=== PATIENT | male | born 1955 | race Caucasian/White ===

== ENCOUNTER 2018-09-29 14:05 | Inpatient (IN) ==
--- NOTE | 2018-09-29 09:28 | Discharge Summary ---
<Martha Joseph - Last Filed: 09/29/18 09:26> Orders not resulted at time of discharge: Pending orders 09/29/18 01:00 XR post op reverse apex RT [XR] Routine Hemoglobin and Hematocrit [HEME] Routine Date of Encounter: 09/29/18 - Hospital Course Hospital course: Mr. Go is a 63 year old male - Time Spent with Patient Total time spent providing and/or coordinating discharge services: - Discharge Medications Prescriptions: New Docusate Sodium [Colace] 100 mg PO BID 5 Days #10 capsule OxyCODONE Immed Rel [Roxicodone 5 MG] 5 mg PO Q6HR PRN 5 Days #20 tablet PRN Reason: Severe Pain Continued Losartan Potassium [Cozaar] 100 mg PO DAILY Celecoxib [Celebrex] 200 mg PO Q12H Montelukast [Singulair] 10 mg PO HS Diltiazem CD (24hr) [Cardizem CD] 120 mg PO DAILY Aspirin [Lo-Dose Aspirin EC] 81 mg PO DAILY Home Medications: Celecoxib [Celebrex] 200 mg PO Q12H 10/19/17 [History] Losartan Potassium [Cozaar] 100 mg PO DAILY 10/19/17 [History] Montelukast [Singulair] 10 mg PO HS 10/19/17 [History] Aspirin [Lo-Dose Aspirin EC] 81 mg PO DAILY 09/29/18 [History] Diltiazem CD (24hr) [Cardizem CD] 120 mg PO DAILY 09/29/18 [History] Docusate Sodium [Colace] 100 mg PO BID 5 Days #10 capsule 09/29/18 [Rx] OxyCODONE Immed Rel [Roxicodone 5 MG] 5 mg PO Q6HR PRN 5 Days #20 tablet 09/29/18 [Rx] Allergies/Adverse Reactions: Allergy/AdvReac Type Severity Reaction Status Date / Time No Known Allergies Allergy Verified 09/29/18 14:17 Primary care physician: Michael Dunham MD - Patient Status Disposition: Home, Self-Care Condition: Good - Discharge Instructions Follow Up With: Michael Dunham MD [Primary Care Provider] - Additional Instructions: Discharge Instructions: Total Shoulder Please call [facility] ([phone]), your Primary Care Physician, or report to the Emergency Room if you have any of the following symptoms: Nausea, vomiting, fever greater that 101.5, swelling, chest pain, shortness of breath, increased pain/redness/drainage/odor for your incision site, numbness/tingling, or any other concerning symptoms. ACTIVITY: Always keep your arm in the sling. Do not raise your arm away from your body. Do not use your arm to help with getting in or out of bed. No weight bearing permitted. Only perform those exercises given to you by your therapist. Incentive Spirometer 10 times an hour. MEDICATIONS: Upon discharge resume your home medications. Take all the medications as prescribed. Take a stool softener if taking narcotic pain medications. Stool softeners are only effective if you drink enough fluids. Drink 6-8 glass of water or fluids a day, unless this is not allowed for another health problem. Despite using stool softeners, if you haven't had a bowel movement in 3 days, please switch to a gentle laxative. Gentle laxatives are sold over the counter. You should have a bowel movement within 24 hours, if not call the office. You will be discharged from the hospital with a prescription for pain medication. You are encouraged to decrease the use of narcotic pain medication as tolerated. Should you require a refill, please call the office. [facility] prescribes narcotic pain medication for only 4-6 weeks after surgery. If you require pain medication beyond this time period, you may be referred to your Primary Care Physician or to the Pain Clinic for further evaluation. Plan ahead for refills on pain medication as many narcotics either need to be picked up at the office or mailed. It is best to call 48-72 hours in advance of needing a prescription refill so you don't run out of medication. To help control the post-operative pain, you may take NSAIDs (Aleve,Advil, Motrin, Ibuprofen, Naprosyn) or Tylenol as prescribed on the bottle in addition to the pain medication. WOUND CARE: Leave the dressing on for 7-10 days. You may change the dressing if it becomes saturated greater than 50%. Do not get the dressing wet at anytime. Wash your hands with antibacterial soap, rinse and dry prior to any wound care. If you have juancho the visiting nurse or rehab facility can remove the stapes 10-14 days after surgery and place steri-strips across the wound. Leave the steri-strips in place until they fall off on their own. You may let water from the shower run on top of the steri-strips. If you do not have a visiting nurse or rehab facility, you will need to return to the office at 10-14 days for the juancho to be removed. If you have itching or redness around the dressing call the office. FOLLOW-UP: Please follow up with your surgeon in the orthopedic clinic, as scheduled <Martha Calderón - Last Filed: 09/30/18 21:55> Orders not resulted at time of discharge: Pending orders 09/29/18 15:02 US anesthesia pain block [US] Routine 09/29/18 16:49 Surgical Pathology [PTH] Routine 10/01/18 04:00 Basic Metabolic Panel DAILY Hemoglobin and Hematocrit [HEME] DAILY Date of Encounter: 09/30/18 Time of Encounter: 14:30 - Discharge Diagnosis (1) Status post total replacement of right shoulder Priority: Primary Status: Acute (2) Rotator cuff arthropathy of right shoulder Priority: Primary Status: Chronic (3) HTN (hypertension) Priority: Secondary Status: Chronic Qualifiers: Hypertension type: essential hypertension Qualified Code(s): I10 - Essential (primary) hypertension (4) Obesity (BMI 30.0-34.9) Priority: Secondary Status: Chronic - Hospital Course Hospital course: Mr. Go is a 63 year old male status post right TSR reverse 09/29/18 with medical history of HTN, obesity. He participated in therapy and had an uneventful hospital course. Stable for discharge and will follow up in [facility] office within 1 week. PCR - POD#1 s/p right TSR reverse 09/29 Patient seen at bedside, without complaints. A&O x 3 Afebrile, vital signs stable. Labs reviewed. H/H - 14.5/43.4 stable, asymptomatic BUN/Cr was 26 preop and stable at 27 today. Pain control: adequate Participating in PT. All questions and concerns addressed. Educated on use of incentive spirometer. Encouraged ambulation and proper hydration. Patient educated on post-operative restrictions and post-operative care. Assessment and plan: Continue with postoperative care Discharge plan: Home with outpatient therapy, discharge today. - Time Spent with Patient Total time spent providing and/or coordinating discharge services: Date of admission: 09/29/18 18:14 Primary care physician: Michael Dunham MD Consults: 09/29/18 18:15 Consult to Occupational Therapy [CONS] Routine Comment: post shoulder surgery Reason for Consult: post shoulder surgery Does patient have active BEDREST order?: No Is patient medically & hemodynamically stable?: Yes Consult to Physical Therapy [CONS] Routine Comment: post shoulder surgery Reason for Consult: post shoulder surgery Does patient have active BEDREST order?: No Is patient medically & hemodynamically stable?: Yes Consult to Heart Surgeon [CONS] Routine Reason for SW Consult: shoulder surgery RT Post Op Consult [CONS] Routine Discharging clinician: Cam Mota Anticipated date of discharge: 09/30/18 Labs on day of discharge: Labs from last 24 hours 09/30/18 09/30/18 09/29/18 08:30 08:30 17:24 Hgb 14.5 14.3 Hct 43.4 42.6 Sodium 138 Potassium 4.3 Chloride 104 Carbon Dioxide 24 BUN 22 Creatinine 0.82 Est GFR ( Amer) > 60 Est GFR (Non-Af Amer) > 60 BUN/Creatinine Ratio 27 H Glucose 143 H Calculated Osmolality 292 Calcium 9.4 - Impressions ITS Impressions Shoulder X-Ray 09/29/18 01:00 IMPRESSION: Unremarkable right shoulder status post reverse arthroplasty. D/ / Fazal Wheeler MD / Fazal Wheeler MD Interpreting Provider: Fazal Wheeler MD - Patient Status Functional capacity at discharge: independent ambulation Overall status at discharge: patient is back to baseline - Diet and Activity Activity: as per physical therapy Diet: advance to your usual diet
--- NOTE | 2018-09-29 10:47 | Anesthesia Evaluation PreOp ---
Date of Encounter: 09/29/18 Time of Encounter: 14:26 - Past History Planned Operation: Right Total Shoulder Cardiac History: HTN Pulmonary History: Asthma, Snore MARKETING INTERN History: Denies Any Significant HX Other Medical History: Denies Any Significant HX Anesthesia History: No Prior Anesthetic Complications, Past Anesthesia Alcohol Use: occasionally Drug use: none Medications and Allergies Celecoxib [Celebrex] 200 mg PO Q12H 10/19/17 [History] Losartan Potassium [Cozaar] 100 mg PO DAILY 10/19/17 [History] Montelukast [Singulair] 10 mg PO HS 10/19/17 [History] Aspirin [Lo-Dose Aspirin EC] 81 mg PO DAILY 09/29/18 [History] Diltiazem CD (24hr) [Cardizem CD] 120 mg PO DAILY 09/29/18 [History] Docusate Sodium [Colace] 100 mg PO BID 5 Days #10 capsule 09/29/18 [Rx] OxyCODONE Immed Rel [Roxicodone 5 MG] 5 mg PO Q6HR PRN 5 Days #20 tablet 09/29/18 [Rx] 3 Allergy/AdvReac Type Severity Reaction Status Date / Time No Known Allergies Allergy Verified 09/29/18 14:17 - Meds/Allergy Pre-op Review Medications Reviewed: Yes Allergies Reviewed: Yes Beta Blockers on Current Med List: No Anesthesia Results - Labs Laboratory Tests 09/10/18 09/10/18 12:01 12:01 WBC 6.1 Hgb 14.9 Hct 44.7 Plt Count 233 Sodium 143 Potassium 4.4 BUN 26 H Creatinine 0.91 - Imaging EKG: report reviewed (08/29/2017 sinus rhythm, possible LAFB) Additional studies: 10/31/2017 Echo Impressions: LVEF 65%. Asymmetric basal septal hypertrophy. No LVOT obstruction. Mild left ventricular diastolic dysfunction. Normal right ventricular structure and function. Mild tricuspid regurgitation. No pulmonary hypertension. 09/27/2017 Stress Findings: Normal sinus rhythm at rest. No baseline arrhythmias were noted. Stress ECG is negative for ischemia. Occasional PVCs and four 4-beat episodes of NSVT during exercise. The patient demonstrated a normal blood pressure response. The exercise capacity was good. No chest pain during stress procedure. Anesthesia Exam O2 Sat Height 1.78 m Weight 96.615 kg O2 Sat by Pulse Oximetry 96 O2 Sat by Pulse Oximetry 96 Vital Signs Temp Pulse Resp BP Pulse Ox 98.1 F 94 18 146/87 96 09/29/18 14:40 09/29/18 14:40 09/29/18 14:40 09/29/18 14:40 09/29/18 14:40 Height: 5'10" Weight: 213 lbs NPO (# of Hours): 8 Pain Scale: 0 Pain Scale Used: Numeric (1 - 10) - HEENT Pupil (Motor): EOMI Mallampati: II Teeth: Normal Oral Opening: Greater than 3 - MARKETING INTERN LOC: Oriented MARKETING INTERN Motor: Normal RUE, Normal LUE, Normal RLE, Normal LLE, Normal Face MARKETING INTERN Sensory: Normal: RUE, LUE, RLE, LLE, Face - Cardiac Rhythm: Regular Murmur: None - Pulmonary Breath Sounds: bilateral Clear Respiratory Effort: Symmetrical Anesthesia Assess/Plan ASA Score: 2 Level of consciousness: Cooperative, Oriented, Tranquil Anesthetic Plan: General, Regional Nerve Block Regional Nerve Block Plan: Supraclavicular Monitoring Plan: Standard Monitors Recovery Plan: PACU
[2018-09-29] MEDS ORDERED: Albuterol 2.5 MG/3 ML NEBULIZER IH ONE (14:18)
[2018-09-29] MEDS ORDERED: CeFAZolin Syr 2,000MG/20 ML 2,000 MG/20 ML SYRINGE IVPB ONE (14:18)
[2018-09-29] MEDS ORDERED: Ringers Solution, Lactated 1,000 ML IVC SCH ×2 (14:30→18:15)
--- NOTE | 2018-09-29 14:30 | History & Physical Report ---
Date of Encounter: 09/29/18 Time of Encounter: 14:30 24 Hour HP Update - Instructions Instructions: If the History and Physical is less than 30 days old and was completed prior to A.M. admission and or procedure and has NOT been updated on calendar day of procedure please complete this update prior to performing procedure. - Update Patient reports changes in Medical Condition: No Changes in examination, assessment, or condition: No Changes in Medication: No Preop tests/diagnostics Reviewed: Yes Surgery Remains Indicated: Yes Consent for Planned Operative Procedure(s) Verified: Yes - Pre-Operative Checklist Preoperative Checklist Indicated: No Prophylactic Antibiotic Ordered: Yes Is VTE Prophylaxis Indicated?: Yes
[2018-09-29] MEDS ORDERED: *HR* HYDROmorphone (PF) 1 MG/ML SYRINGE IVP PRN (15:02)
[2018-09-29] MEDS ORDERED: Ondansetron 4 MG/2 ML VIAL IVP ONE (15:02)
[2018-09-29] MEDS ORDERED: *HR* Promethazine 25 MG/ML VIAL IVP PRN (15:02)
[2018-09-29] MEDS ORDERED: *HR* OxyCODONE Immed Rel 5 MG TABLET PO PRN ×2 (15:02→18:15)
[2018-09-29] MEDS ORDERED: ROPIVACAINE HCL/PF 0.5% 30 ML VIAL ONE (15:13)
[2018-09-29] MEDS ORDERED: ROPIVACAINE/PF/NS SYRINGE INTRAART ONE (15:14)
[2018-09-29] MEDS ORDERED: Ethanol\\Acetic Acid\\Na Ace\\Ben 1,000 ML IRRIG.SOLN IR ONE (15:15)
[2018-09-29] MEDS ORDERED: *HR* FentaNYL (PF) 100 MCG/2 ML VIAL ONE (15:20)
[2018-09-29] MEDS ORDERED: Lidocaine -MPF 2% 2 ML VIAL ONE ×2 (15:20→15:22)
[2018-09-29] MEDS ORDERED: *HR* Propofol 200 MG/20 ML VIAL IVP ONE ×2 (15:20→16:02)
[2018-09-29] MEDS ORDERED: *HR* Midazolam HCl 2 MG/2 ML VIAL ONE (15:21)
--- NOTE | 2018-09-29 15:44 | Anesthesia Procedures ---
Date of Encounter: 09/29/18 Time of Encounter: 15:35 Procedures: Anesthesia - Nerve Block Procedure Date: 09/29/18 Time: 15:35 Allergies/Adv Reactions: Allergies No Known Allergies Allergy (Verified 09/29/18 14:17) Pre-op Diagnosis: right shoulder arthritis Surgical Procedure: right shoulder arthroplasty Checklist: Correct Patient Identifier, Correct procedure, History checked Correct side: Right Blood Thinner: No Monitor Applied: BP, Pulse Oximetry Supplemental Oxygen via Nasal Cannula (L/min): 2 Sedation: Versed (mg): 2 Sedation: Fentanyl (mcg): 100 Indication: Post Op Analgesia Pre-op Neuro Deficits: No Block Type: Supraclavicular, Other (SCP, ICB) Catheter placed: No Sterile Technique: Yes Ultrasound used: Yes Anatomy identified: Yes Visual spread of Local: Yes Blood on Needle Aspiration: No Smooth Injection of Local: Yes Pain with Injection of Local: No Prep: Chlorhexadine Needle: 22 x 50 mm Stimuplex Local: Ropivacaine (25ml 0.5% ropivacaine with decadron and 15ml 0.25% ropivacaine) Volume (cc): 40 Number of Attempts: 1 Complications: None/effective block Vitals: see nurses vitals
[2018-09-29] MEDS ORDERED: Ondansetron 4 MG/2 ML VIAL ONE (16:11)
--- NOTE | 2018-09-29 17:20 | Orthopedic Operative Note ---
Date of procedure: 09/29/18 Pre-op diagnosis: Shoulder cuff tear arthropathy Post-op diagnosis: same Procedure: Procedure: Total Shoulder Replacment Reverse, right Estimated blood loss: 50 cc Hardware: Metal and polyethylene replacement: Arthrex 28, +2 , 30 mm post glenoid baseplate, 4 locking 5.5 screw, 42+4 glenosphere, 13 apex humeral stem, poly insert 6 Exam Under anesthesia: Full motion no instability Procedural Notes: Shoulder arthritis rotator cuff tear Operative procedure: The patient was brought to the operating room and placed on the operating room table. After general anesthesia was administered the operative shoulder was examined. Findings were noted. The patient was placed in the modified beachchair position. All pressure points were padded appropriately. And the head was stabilized in the neutral position. The operative extremity was prepped and draped in the sterile surgical fashion. The patient received IV antibiotics prior to skin incision. A standard deltopectoral approach was made to the operative shoulder. Incision was made to the skin and subcutaneous tissue,hemo stasis was obtained with Bovie cautery. Using careful blunt dissection the cephalic vein was identified and mobilized medially. The deltopectoral interval was developed and the clavipectoral fascia was incised. The subscap was released off the lesser tuberosity and tagged with #2 FiberWire suture subscap was irreparable. The humerus was dislocated patient noted to have irreparable tear supraspinatus tendon, and the humeral cut was made along the anatomic neck. Anterior and posterior Bankart retractors were placed to expose the glenoid. Patient noted to have grade 4 arthritic changes humeral head glenoid socket. The glenoid guide was seated and the centering hole was made. It was reamed with the appropriate reamer. The 28, +2, 30 mm post was seated and secured with 4 locking 5.5 screw. The baseplate was irrigated and dried and the 42+4 Glenosphere was seated and secured with the Hernandez taper. The Hernandez taper was tested and found to be secu re, glenosphere fixation was secondarily secured with the central screw. The humerus was redislocated and prepared with the diaphyseal reamers, followed by a broaching process up to the appropriate size 13 in the patient's anatomic version. The metaphyseal reamer was then utilized. Trial reduction found the shoulder to be relocatable. Trial components were removed and 13 stem was impacted in place in the patient's anatomic version. Trial reduction found the shoulder to be relocatable and stable with the appropriate 6 Linda Trial component was removed and the real implant was seated and secured the shoulder was reduced. The shoulder had excellent motion and excellent stability and no evidence of dislocation. The deep tissue was irrigated with pulse irrigation. The deltopectoral i nterval was closed with a running #1 PDS suture, subcutaneous tissue was irrigated and closed with 0 PDS suture, the skin was closed with Dermabond. The patient was placed in a sterile dressing, abduction brace and extubated. The patient was then transferred to the recovery room in stable condition. Anesthesia: GETA Surgeon: Cam Mota Was there an early childhood teacher assistant present: No Estimated blood loss (cc): 50 Condition: stable Disposition: PACU
[2018-09-29] MEDS ORDERED: *HR* Enoxaparin 30 MG/0.3 ML SYRINGE SQ SCH (18:00)
[2018-09-29 18:07] LABS: Hematocrit 42.6 % (37.5-50.1); Hemoglobin 14.3 g/dL (12.9-16.9)
[2018-09-29] MEDS ORDERED: Ondansetron 4 MG/2 ML VIAL IVP PRN (18:15)
[2018-09-29] MEDS ORDERED: Temazepam 15 MG CAPSULE PO PRN (18:15)
[2018-09-29] MEDS ORDERED: Sennosides 8.6 MG TABLET PO PRN (18:15)
[2018-09-29] MEDS ORDERED: traMADol 50 MG TABLET PO PRN (18:15)
[2018-09-29] MEDS ORDERED: MOM Conc 10 ML UD.LIQ PO PRN (18:15)
[2018-09-29] MEDS ORDERED: *HR* OxyCODONE/APAP 5/325 TABLET PO PRN (18:15)
[2018-09-29] MEDS: Celecoxib 200 MG CAPSULE PO SCH (19:41)
--- NOTE | 2018-09-29 19:59 | Anesthesia Evaluation Post Op ---
Date of Encounter: 09/29/18 Time of Encounter: 17:36 - Discharge PostOp Status: Transfer Patient to floor (Patient's vital signs have been reviewed. Patient is stable postoperatively and has adequately recovered from anesthesia. Patient is determined to have stable airway patency and respiratory function including respiratory rate and oxygen saturation. Patient has a stable heart rate, blood pressure and adequate hydration. Patients mental status is acceptable. Patients temperature is appropriate. Pain and nausea are adequately controlled.)
[2018-09-30] MEDS ORDERED: *HR* Enoxaparin 30 MG/0.3 ML SYRINGE SQ SCH (06:00)
[2018-09-30] MEDS: Celecoxib 200 MG CAPSULE PO SCH (06:12)
--- NOTE | 2018-09-30 06:39 | Orthopedics Progress Note ---
Date of Encounter: 09/30/18 Time of Encounter: 06:39 Subjective Interval history: Patient was seen this morning doing well without complaints. Afebrile vital signs stable. Operative extremity: Neurovascularly intact Dressing clean dry and intact Calves nontender Assessment and plan: Continue with postoperative care Stable for discharge Objective Vital signs: Vital Signs Temp Pulse Resp BP Pulse Ox 09/30/18 02:44 98.1 F 103 18 148/84 95 09/29/18 23:28 98.1 F 102 18 108/65 94 09/29/18 21:50 98.6 F 96 16 131/81 93 09/29/18 20:51 98 F 103 16 139/91 94 09/29/18 19:46 98.1 F 97 18 137/88 94 09/29/18 19:19 98.2 F 95 16 138/86 96 09/29/18 18:25 98.1 F 90 14 143/86 94 09/29/18 18:06 97.2 F L 88 20 135/85 88 09/29/18 17:56 91 20 147/86 96 09/29/18 17:46 89 20 144/84 96 09/29/18 17:36 97.3 F L 90 20 139/89 98 09/29/18 17:26 92 20 151/87 97 09/29/18 17:16 94 22 150/85 97 09/29/18 17:06 97.2 F L 99 22 138/82 96 09/29/18 15:51 99 16 132/84 95 09/29/18 15:39 96 16 124/77 94 09/29/18 15:32 95 18 132/85 92 09/29/18 14:40 98.1 F 94 18 146/87 96 Intake and Output 09/29/18 09/29/18 09/30/18 15:59 23:59 07:59 Intake Total 350 / 350 0 / 0 Output Total 50 / 50 Balance 300 / 300 0 / 0 Intake: IV Fluids 100 / 100 Ancef 2,000 MG In 0.9 % Sodium 100 / 100 Chloride 100 ML @ 200 mls/hr IVPB Q8H [facility] Rx#:[id number] Oral 250 / 250 0 / 0 Output: Urine 0 / 0 Estimated Blood Loss 50 / 50 Other: # Voids 1 1 Weight 96.615 kg 95.7 kg Patient Weight 09/30/18 23:59 Weight 95.7 kg - Labs CBC & BMP: 09/29/18 17:24 Consult Discharge Plan - Plan Referrals: Michael Dunham MD [Primary Care Provider] -
[2018-09-30 08:45] LABS: Hematocrit 43.4 % (37.5-50.1); Hemoglobin 14.5 g/dL (12.9-16.9)
[2018-09-30] MEDS ORDERED: Aspirin Enteric Coated 81 MG Tablet PO SCH (09:00)
[2018-09-30] MEDS ORDERED: Diltiazem CD (24hr) 120 MG CAPSULE PO SCH (09:00)
[2018-09-30 09:06] LABS: BUN/Creatinine Ratio 27 (6-26); Blood Urea Nitrogen 22 mg/dL (8-23); Calcium 9.4 mg/dL (8.6-10.3); Carbon Dioxide 24 mEq/L (23-29); Chloride 104 mEq/L (98-107); Glucose 143 mg/dL (70-105); Osmolality,Calculated 292 (280-300); Potassium 4.3 mEq/L (3.5-5.1); Sodium 138 mEq/L (136-145); eGFR For African Americans > 60 (> 60); eGFR For Non-African Americans > 60 (> 60)
[2018-09-30 11:49] VITALS: BP 110/67
== END 2018-09-30 16:04 | disposition home or self-care (01) | DRG 483 ==
LOC: SAMDAY 14:05 → 3NENU 18:14
PROVIDERS: ADMIT Orthopaedic Surgery; ATTEND Orthopaedic Surgery

== ENCOUNTER 2018-10-20 17:32 | Inpatient (IN) ==
[2018-10-20] MEDS ORDERED: *HR* HYDROmorphone (PF) 1 MG/ML SYRINGE IM ONE (18:24)
[2018-10-20] MEDS ORDERED: Ondansetron ODT 4 MG TAB.RAPDIS SL ONE (18:24)
--- NOTE | 2018-10-20 18:55 | Emergency Department Note ---
Disposition Clinical Impression: Closed fracture of humerus, shaft Qualifiers: Encounter type: initial encounter Fracture morphology: other fracture Laterality: right Qualified Code(s): S42.391A - Other fracture of shaft of right humerus, initial encounter for closed fracture Disposition: Admitted As Inpatient Condition: Fair Prescriptions: OxyCODONE/APAP 5/325 [Percocet 5/325 MG] 1 each PO Q4HR PRN 2 Days #8 tablet PRN Reason: Pain Referrals: Michael Dunham MD [Primary Care Provider] - Cam Mota MD [Partnered Physician] - Forms: ED Satisfaction Letter Time of Disposition: 20:40 Upper Extremity HPI - General Chief Complaint: ED Extremity Injury, Upper Stated Complaint: R shoulder pain s/p fall Time Seen by Provider: 10/20/18 18:24 Source: patient, family Mode of arrival: private vehicle Limitations: no limitations Nursing Notes Reviewed: Yes Vital Signs Reviewed: Yes - History of Present Illness HPI Narrative: Patient with hx of right total shoulder replacement 3 weeks ago and RUE DVT's 2 weeks ago - on Eliquis - presents to ED for eval of right shoulder pain after [place] a park. He states that he tripped on uneven pavement and landed on his right anterior shoulder. He was wearing his sling. He denies head, neck or back injury or pain. Onset (ago): hour(s) Other Injuries: none Handedness: right Place: outdoors Pain Severity: severe Pain Scale: 10 Improves with: nothing Worsens with: movement of extremity, Palpation Context: fall (tripped at the park, landed on right anterior shoulder while wearing sling) Associated symptoms: Reports: paresthesias ("a little numbness/tingling in the fingers"). Denies: weakness, neck pain, suspects foreign body, heard/felt popping sensation, deformity, swelling, laceration Treatments prior to arrival: other (none) - Related Data Home Medications Medication Instructions Recorded Confirmed Celecoxib [Celebrex] 200 mg PO Q12H 10/19/17 10/20/18 Losartan Potassium [Cozaar] 100 mg PO DAILY 10/19/17 10/20/18 Montelukast [Singulair] 10 mg PO HS PRN 10/19/17 10/20/18 Diltiazem CD (24hr) [Cardizem CD] 120 mg PO DAILY 09/29/18 10/20/18 Apixaban [Eliquis] 5 mg PO BID 10/15/18 10/20/18 Previous Rx's Medication Instructions Recorded OxyCODONE/APAP 5/325 [Percocet 1 each PO Q4HR PRN 2 Days #8 tablet 10/20/18 5/325 MG] Allergies Allergy/AdvReac Type Severity Reaction Status Date / Time No Known Allergies Allergy Verified 10/15/18 11:13 All systems ED: reviewed and negative except as stated. Review of Systems: As Per HPI Constitutional: Denies: fever, chills, weakness Eyes: Denies: vision change Cardiovascular: Denies: chest pain, palpitations, dyspnea on exertion, syncope Respiratory: Denies: dyspnea Gastrointestinal: Denies: abdominal pain, nausea, vomiting Musculoskeletal: Reports: as per HPI, joint swelling, arthralgia. Denies: back pain, neck pain Integumentary: Denies: abrasion Neurological: Reports: as per HPI, numbness, paresthesias. Denies: weakness Hematological/Lymphatic: Denies: easy bleeding, easy bruising Past Medical History - Past Medical History Attestation: Yes The following information was validated with the patient. Source: patient Medical history: Reports: arthritis, asthma, DVT, hypertension Surgical history: Reports: orthopedic, other (Right shoulder replacement 3 weeks ago) Psychiatric history: Reports: no psych history - Social History Smoking Status: Never smoker Exposure to secondhand smoke: No Smokeless Tobacco Status: No Alcohol use: Reports: none Drug use: Reports: none Physical Exam - General Limitations: no limitations General appearance: alert, in no apparent distress - Head Head exam: atraumatic, normocephalic, normal inspection - Eye Eye exam: Present: normal appearance. Absent: scleral icterus, conjunctival injection, periorbital swelling - ENT ENT exam: mucous membranes moist - Neck Neck exam: Present: normal inspection, full ROM, trachea midline. Absent: tenderness - Expanded Neck Exam Neck exam focused ED: Absent: midline tenderness, paraspinal tenderness, tenderness (other), anterior neck swelling - Chest Chest inspection: Present: normal inspection. Absent: tenderness - Respiratory Respiratory exam: Present: normal lung sounds bilaterally. Absent: respiratory distress - Cardiovascular Cardiovascular exam: Present: regular rate, normal rhythm - Extremities Exam Extremities exam: Present: tenderness, normal capillary refill - Expanded Upper Extremity Exam Shoulder exam: Present: tenderness, swelling, tenderness over AC joint. Absent: full ROM, abrasion, laceration, ecchymosis, erythema Arm exam: Present: tenderness. Absent: swelling, abrasion, ecchymosis, deformi ty, crepitus, erythema Elbow exam: Present: normal inspection. Absent: tenderness Forearm/Wrist exam: Present: normal inspection. Absent: tenderness Hand exam: Present: normal inspection, full ROM. Absent: tenderness, swelling Neuromotor exam: Normal: wrist extension, thumb opposition, thumb IP flexion, thumb adduction, fingers 2-5 abduction Neurosensory exam: Normal: radial nerve, ulnar nerve, median nerve, axillary nerve Hand tendon exam: Normal: flexor digitorum profundus (location), flexor digitorum superficialis (location), extensor tendon (location) Vascular exam: Normal: capillary refill, radial pulse, ulnar pulse - Back Exam Back exam: Present: tenderness, muscle spasm, paraspinal tenderness. Absent: CVA tenderness (R), CVA tenderness (L), vertebral tenderness Back 1 view image: 1 - significant spasm, tenderness - Neurological Exam Neurological exam: Present: alert, oriented X3, CN II-XII intact, normal gait. Absent: motor sensory deficit - Psychiatric Psychiatric exam: Present: normal affect, normal mood - Skin Skin exam: Present: warm, dry, intact, normal color Course Course Narrative: Patient fell on his new right shoulder. Pulses and cap refill normal. Sensation normal and symmetric bilaterally. No head or neck injury and no spine tenderness. HE appears to be in a grat deal of pain. Will medicate and then order xrays. Vitals normal, except mild hypertension. Pain much better after 1mg dilaudid. Vitals stable. Xrays ordered. Xrays show proximal humerus fracture around the prosthetic stem. Dr. Mota has been paged. Case discussed with Dr. Mota. He recommends having the patient wear his sling and he will see the patient tomorrow at 8 AM. 21:15 Patient's pain returned and he is unable to care for self at home. He is also concerned about anticoagulation in setting of possible surgery for this new injury. Will page Dr. Mota and hospitalist. Dr. Mota will see the patient in the hospital tomorrow AM. He recommends Lovenox as patient will not have surgery tomorrow. Vital Signs Temperature 97.9 F 10/20/18 17:41 Pulse Rate 95 10/20/18 17:41 Respiratory Rate 20 10/20/18 17:41 Blood Pressure 141/84 10/20/18 17:41 O2 Sat by Pulse Oximetry 94 10/20/18 17:41 Temperature 97.9 F 10/20/18 17:41 Pulse Rate 102 10/20/18 22:14 Respiratory Rate 16 10/20/18 22:14 Blood Pressure 136/81 10/20/18 22:14 O2 Sat by Pulse Oximetry 95 10/20/18 22:14 Oxygen Delivery Oxygen Delivery Room Air Extremity Injury, Upper - Medical Records Medical records reviewed: Yes I reviewed the patient's medical records. - Lab Data Result diagrams: 10/20/18 21:44 Lab Results 10/20/18 Range/Units 21:44 WBC 10.1 (4.3-11.1) K/mcL RBC 4.24 (4.19-5.50) M/mcL Hgb 13.7 (12.9-16.9) g/dL Hct 41.1 (37.5-50.1) % MCV 96.9 (83.0-100.0) fL MCH 32.3 (28.0-33.3) pg MCHC 33.3 (31.6-35.5) g/dL RDW 11.6 (11.5-14.5) % Plt Count 247 (140-400) K/mcL MPV 10.4 (9.4-12.4) fL Immature Gran % 0.4 (0-4) % Seg Neutrophils % 83.8 % Lymphocytes % 6.6 % Monocytes % 8.8 % Eosinophils % 0.2 % Basophils % 0.2 % Neutrophils # 8.5 (1.6-8.9) K/mcL Lymphocytes # 0.7 (0.6-4.6) K/mcL Monocytes # 0.9 (0.0-1.3) K/mcL Eosinophils # 0.0 (0.0-0.6) K/mcL Basophils # 0.0 (0.0-0.2) K/mcL - Radiology Data Radiology results reviewed: Yes I reviewed the patient's radiology results. Humerus X-Ray 10/20/18 18:57 IMPRESSION: Right shoulder: Status post reverse right shoulder arthroplasty with periprosthetic fracture adjacent to the humeral prosthetic stem. Right humerus: Remainder of the right humerus is unremarkable. D/ / Gautam Contreras MD / Gautam Contreras MD Interpreting Provider: Gautam Contreras MD Shoulder X-Ray 10/20/18 18:57
[2018-10-20] MEDS ORDERED: *HR* HYDROmorphone (PF) 1 MG/ML SYRINGE IVP ONE (21:17)
[2018-10-20 22:33] LABS: Basophils % 0.2 %; Eosinophils % 0.2 %; Hematocrit 41.1 % (37.5-50.1); Hemoglobin 13.7 g/dL (12.9-16.9); Immature Granulocytes % 0.4 % (0-4); Lymphocytes # 0.7 K/mcL (0.6-4.6); Lymphocytes % 6.6 %; Mean Corpuscular HGB Conc 33.3 g/dL (31.6-35.5); Mean Corpuscular Hemoglobin 32.3 pg (28.0-33.3); Mean Corpuscular Volume 96.9 fL (83.0-100.0); Mean Platelet Volume 10.4 fL (9.4-12.4); Monocytes # 0.9 K/mcL (0.0-1.3); Monocytes % 8.8 %; Neutrophils # 8.5 K/mcL (1.6-8.9); Platelet Count 247 K/mcL (140-400); Red Blood Count 4.24 M/mcL (4.19-5.50); Red Cell Distribution Width 11.6 % (11.5-14.5); Segmented Neutrophils % 83.8 %; White Blood Count 10.1 K/mcL (4.3-11.1)
[2018-10-20 22:41] LABS: INR 1.2; Prothrombin Time 13.7 Seconds (9.4-12.1)
[2018-10-20 23:10] LABS: BUN/Creatinine Ratio 23 (6-26); Blood Urea Nitrogen 25 mg/dL (8-23); Calcium 8.9 mg/dL (8.6-10.3); Carbon Dioxide 27 mEq/L (23-29); Chloride 104 mEq/L (98-107); Glucose 143 mg/dL (70-105); Osmolality,Calculated 295 (280-300); Potassium 4.2 mEq/L (3.5-5.1); Sodium 139 mEq/L (136-145); eGFR For African Americans > 60 (> 60); eGFR For Non-African Americans > 60 (> 60)
[2018-10-20] MEDS ORDERED: Naloxone 0.4 MG/ML INJ IVP PRN (23:17)
[2018-10-20] MEDS ORDERED: Ondansetron ODT 4 MG TAB.RAPDIS SL PRN (23:17)
--- NOTE | 2018-10-21 02:15 | Internal Med History&Physical ---
Date of Encounter: 10/21/18 Time of Encounter: 02:14 Internal Medicine - H&P: HPI History of present illness: Mr. Go is a 63 year old male Past Med Surg Social Fam HX - Past Medical History Medical history: arthritis, asthma, DVT, hypertension Additional medical history: thyroid nodule. renal mass/nodule. planter fascitis Psychiatric history: no psych history - Past Surgical History Surgical History: orthopedic, other Additional surgical history: rotator cuff repair. carpal tunnel release. oral surgery. right shoulder surgery - Social History Smoking Status: Never smoker Smokeless Tobacco Status: No Alcohol use: none Drug use: none - Family History Mother Hx Family Cardiac Disorders: Yes (CHF) Father Hx Family Cardiac Disorders: Yes (CHF) Hx Family Cancer: Yes Internal Medicine - H&P: Meds Celecoxib [Celebrex] 200 mg PO Q12H 10/19/17 [History] Losartan Potassium [Cozaar] 100 mg PO DAILY 10/19/17 [History] Montelukast [Singulair] 10 mg PO HS PRN 10/19/17 [History] Diltiazem CD (24hr) [Cardizem CD] 120 mg PO DAILY 09/29/18 [History] Apixaban [Eliquis] 5 mg PO BID 10/15/18 [History] OxyCODONE/APAP 5/325 [Percocet 5/325 MG] 1 each PO Q4HR PRN 2 Days #8 tablet 10/20/18 [Rx] Allergy/AdvReac Type Severity Reaction Status Date / Time No Known Allergies Allergy Verified 10/15/18 11:13 All Systems PM: A 10-system review of systems was performed and is negative for pertinent findings except as documented above in the HPI. - Constitutional Vitals: Temp Pulse Resp BP Pulse Ox 98 F 90 14 120/75 94 10/21/18 01:52 10/21/18 01:52 10/21/18 01:52 10/21/18 01:52 10/21/18 01:52 Internal Med - H&P Results - Labs CBC & Chem 7: 10/20/18 21:44 10/20/18 21:44 Labs: Short CBC 10/20/18 Range/Units 21:44 WBC 10.1 (4.3-11.1) K/mcL Hgb 13.7 (12.9-16.9) g/dL Hct 41.1 (37.5-50.1) % Plt Count 247 (140-400) K/mcL Neutrophils # 8.5 (1.6-8.9) K/mcL BMP 10/20/18 21:44 Sodium 139 Potassium 4.2 Chloride 104 Carbon Dioxide 27 BUN 25 H Creatinine 1.09 Glucose 143 H Calcium 8.9 - Impressions ITS Impressions Humerus X-Ray 10/20/18 18:57 IMPRESSION: Right shoulder: Status post reverse right shoulder arthroplasty with periprosthetic fracture adjacent to the humeral prosthetic stem. Right humerus: Remainder of the right humerus is unremarkable. D/ / Gautam Contreras MD / Gautam Contreras MD Interpreting Provider: Gautam Contreras MD Shoulder X-Ray 10/20/18 18:57 IMPRESSION: Right shoulder: Status post reverse right shoulder arthroplasty with periprosthetic fracture adjacent to the humeral prosthetic stem. Right humerus: Remainder of the right humerus is unremarkable. D/ / Gautam Contreras MD / Gautam Contreras MD Interpreting Provider: Gautam Contreras MD Head CT 10/20/18 23:05 IMPRESSION: No acute intracranial abnormality. Prominent left frontal inner table exostosis versus calcified nodule such as meningioma; no associated mass effect. D/ / Jay Atwood / Jay Atwood Interpreting Provider: Jay Atwood - Time Spent With Patient Total time spent is greater than 50% in coordination of care (as documented) at patient's floor/unit and/or counseling patient:
[2018-10-21] MEDS: 0.9 % Sodium Chloride 1,000 ML IVC SCH ×2 (03:43→22:12)
[2018-10-21 03:54] LABS: Basophils % 0.1 %; Eosinophils % 0.1 %; Hematocrit 39.2 % (37.5-50.1); Hemoglobin 12.8 g/dL (12.9-16.9); Immature Granulocytes % 0.5 % (0-4); Lymphocytes # 0.6 K/mcL (0.6-4.6); Lymphocytes % 6.2 %; Mean Corpuscular HGB Conc 32.7 g/dL (31.6-35.5); Mean Corpuscular Hemoglobin 31.6 pg (28.0-33.3); Mean Corpuscular Volume 96.8 fL (83.0-100.0); Mean Platelet Volume 10.4 fL (9.4-12.4); Monocytes # 0.8 K/mcL (0.0-1.3); Monocytes % 7.6 %; Neutrophils # 8.6 K/mcL (1.6-8.9); Platelet Count 222 K/mcL (140-400); Red Blood Count 4.05 M/mcL (4.19-5.50); Red Cell Distribution Width 11.6 % (11.5-14.5); Segmented Neutrophils % 85.5 %; White Blood Count 10.1 K/mcL (4.3-11.1)
[2018-10-21 04:02] LABS: INR 1.2; Prothrombin Time 13.9 Seconds (9.4-12.1)
[2018-10-21 04:05] LABS: Activated Partial Thrombo Time 31.2 Seconds (26.0-36.0)
[2018-10-21 04:11] LABS: Alanine Aminotransferase 19 Units/L (7-52); Albumin 3.8 g/dL (3.5-5.7); Albumin/Globulin Ratio 1.5 (1.1-2.2); Alkaline Phosphatase 63 Units/L (34-104); Aspartate Amino Transferase 15 Units/L (13-39); BUN/Creatinine Ratio 26 (6-26); Blood Urea Nitrogen 25 mg/dL (8-23); Carbon Dioxide 27 mEq/L (23-29); Chloride 105 mEq/L (98-107); Globulin 2.6 g/dL (2.4-3.5); Glucose 142 mg/dL (70-105); Osmolality,Calculated 293 (280-300); Potassium 4.4 mEq/L (3.5-5.1); Sodium 138 mEq/L (136-145); Total Protein 6.4 g/dL (6.4-8.9); eGFR For African Americans > 60 (> 60); eGFR For Non-African Americans > 60 (> 60)
--- NOTE | 2018-10-21 04:40 | Internal Med History&Physical ---
<Sachin Moseley - Last Filed: 10/21/18 05:01> Date of Encounter: 10/21/18 Time of Encounter: 05:01 Internal Medicine - H&P: HPI Chief complaint: Fall Admitted From: Emergency Dept Plans for Post Hospital Care: Home History of present illness: Mr. Go is a 63 year old male with past medical history of asthma, DVT, hypertension presents the emergency department following a mechanical fall. Of note, patient was recently admitted to this facility and underwent a right total shoulder arthroplasty 3 weeks ago. Following his surgery, he also developed an acute DVT in his right upper extremity and has been on eliquis without complication. Patient states that he was walking when he missed stepped and his foot caught on some sidewalk in [place]. He fell on his right shoulder and had sudden onset pain. Pain is located on the anterior shoulder without radiation. He denies any symptoms of numbness, tingling, swelling in the extremity. Also denies any symptoms of fevers, chills or chest pains, shortness of breath, nausea, vomiting. Patient states that previous surgery did go well and he tolerated anesthesia and the surgery without any side effects. Patient has never had any chest pains and is very active at home. In the emergency department, vital signs are significant for a heart rate of 102, otherwise unremarkable. Laboratory results were obtained including CBC, coagulation studies, BMP which were grossly unremarkable. X-rays of the shoulder and humerus were obtained and showed status post reverse right shoulder arthroplasty with periprosthetic fracture adjacent to the humeral prosthetic stem. Patient was given pain control and orthopedics was consulted emergency department. Per ED note, patient will likely need to be bridged off eliquis prior to any surgery. At time of my interview, patient states that he is doing well without complaints this time. His pain is currently at a 3/10 as long as he does not move it. He continues to deny any numbness, tingling or loss of strength. Past medical history: As above Past surgical history: Right shoulder arthroplasty, left rotator cuff surgery Social history: Never smoker, rare alcohol use, denies drug use Family history: Heart disease in father Past Med Surg Social Fam HX - Past Medical History Medical history: arthritis, asthma, DVT, hypertension Additional medical history: thyroid nodule. renal mass/nodule. planter fascitis Psychiatric history: no psych history - Past Surgical History Surgical History: orthopedic, other Additional surgical history: rotator cuff repair. carpal tunnel release. oral surgery. right shoulder surgery - Social History Smoking Status: Never smoker Smokeless Tobacco Status: No Alcohol use: none Drug use: none - Family History Mother Hx Family Cardiac Disorders: Yes (CHF) Father Hx Family Cardiac Disorders: Yes (CHF) Hx Family Cancer: Yes Internal Medicine - H&P: Meds Celecoxib [Celebrex] 200 mg PO Q12H 10/19/17 [History] Losartan Potassium [Cozaar] 100 mg PO DAILY 10/19/17 [History] Montelukast [Singulair] 10 mg PO HS PRN 10/19/17 [History] Diltiazem CD (24hr) [Cardizem CD] 120 mg PO DAILY 09/29/18 [History] Apixaban [Eliquis] 5 mg PO BID 10/15/18 [History] OxyCODONE/APAP 5/325 [Percocet 5/325 MG] 1 each PO Q4HR PRN 2 Days #8 tablet 10/20/18 [Rx] Allergy/AdvReac Type Severity Reaction Status Date / Time No Known Allergies Allergy Verified 10/15/18 11:13 All Systems PM: A 10-system review of systems was performed and is negative for pertinent findings except as documented above in the HPI. Review of systems: - Constitutional: Denies fevers, chills, weight loss, generalized fatigue - Head/Neck: Denies LEE, neck stiffness - CVS: Denies chest pain, palpitations, SUN, orthopnea, edema, PND, - Pulm: Denies SOB, cough, sputum, wheezing - GI: Denies abdominal pain, nausea, vomiting, diarrhea, constipation, melena - : Denies dysuria, increased frequency, urgency, hematuria, - Heme: Denies ease of bleeding or bruising - MSK: Admits to right shoulder pain, limited range of motion secondary to pain. - Skin: Denies rashes, ulcers, color changes, - Neuro: Denies LEE, paresthesias, focal deficits, ataxia, - Constitutional Vitals: Temp Pulse Resp BP Pulse Ox 98 F 90 14 120/75 94 10/21/18 01:52 10/21/18 01:52 10/21/18 01:52 10/21/18 01:52 10/21/18 01:52 Exam: Gen.: Vitals noted. No acute distress. AAOx3, resting comfortably in bed. HEENT: PERRL/EOMI, oropharynx clear, Normocephalic, atraumatic, MMM Cardiac: RRR, possible systolic murmur, +S1/S2, No BLE edema Pulmonary: CTA bilaterally, no wheezes, rales or rhonchi, equal chest expansion, unlabored breathing Abdomen: soft, nontender, BS noted, no guarding, no palpable HSM Skin: warm and dry, no visible lesions. MSK: Right arm in sling, range of motion not assessed. no joint swelling noted, gait no assessed while in bed. Non tender calf or clubbing. Patient has 5/5 strength in all extremities. Pulses palpable Neuro: A&Ox3, moves all extremities, no focal deficits, sensation intact Psych: Appropriate mood and behavior, AOx3 Internal Med - H&P Results - Labs CBC & Chem 7: 10/21/18 03:27 10/21/18 03:27 Labs: Short CBC 10/20/18 10/21/18 Range/Units 21:44 03:27 WBC 10.1 10.1 (4.3-11.1) K/mcL Hgb 13.7 12.8 L (12.9-16.9) g/dL Hct 41.1 39.2 (37.5-50.1) % Plt Count 247 222 (140-400) K/mcL Neutrophils # 8.5 8.6 (1.6-8.9) K/mcL BMP 10/20/18 10/21/18 21:44 03:27 Sodium 139 138 Potassium 4.2 4.4 Chloride 104 105 Carbon Dioxide 27 27 BUN 25 H 25 H Creatinine 1.09 0.98 Glucose 143 H 142 H Calcium 8.9 9.0 Liver Function 10/21/18 Range/Units 03:27 Total Bilirubin 1.0 (0.3-1.0) mg/dL AST 15 (13-39) Units/L ALT 19 (7-52) Units/L Alkaline Phosphatase 63 (34-104) Units/L Albumin 3.8 (3.5-5.7) g/dL - Impressions ITS Impressions Humerus X-Ray 10/20/18 18:57 IMPRESSION: Right shoulder: Status post reverse right shoulder arthroplasty with periprosthetic fracture adjacent to the humeral prosthetic stem. Right humerus: Remainder of the right humerus is unremarkable. D/ / Gautam Contreras MD / Gautam Contreras MD Interpreting Provider: Gautam Contreras MD Shoulder X-Ray 10/20/18 18:57 IMPRESSION: Right shoulder: Status post reverse right shoulder arthroplasty with periprosthetic fracture adjacent to the humeral prosthetic stem. Right humerus: Remainder of the right humerus is unremarkable. D/ / Gautam Contreras MD / Gautam Contreras MD Interpreting Provider: Gautam Contreras MD Head CT 10/20/18 23:05 IMPRESSION: No acute intracranial abnormality. Prominent left frontal inner table exostosis versus calcified nodule such as meningioma; no associated mass effect. D/ / Jay Atwood / Jay Atwood Interpreting Provider: Jay Atwood - Assessment and Plan (1) Closed fracture of humerus, shaft Current Visit: Yes Status: Acute Assessment and plan: - Secondary to mechanical fall - Patient is status post right total shoulder arthroplasty 3 weeks ago - Pain is currently moderately well controlled - Ortho consulted in the emergency department, will see this morning - Shoulder x-ray confirms periprosthetic fracture adjacent to the humeral prosthetic stem Plan - Per Ortho - Will hold eliquis and start heparin gtt - NPO for possible surgery - Pain control Qualifiers: Encounter type: initial encounter Fracture morphology: other fracture Lat erality: right Qualified Code(s): S42.391A - Other fracture of shaft of right humerus, initial encounter for closed fracture (2) DVT (deep venous thrombosis) Current Visit: Yes Status: Acute Assessment and plan: - Patient diagnosed with acute DVT in right upper extremity 2 weeks ago - Has been on therapeutic eliquis since that time - Patient denies any chest pain, shortness of breath indicate extension - We will start heparin drip and hold home eliquis per orthopedic request - Monitor for any signs or symptoms of bleeding Qualifiers: DVT location: upper extremity Affected thrombotic vein of extremity: unspecified vein of extremity Chronicity: acute Laterality: right Qualified Code(s): I82.621 - Acute embolism and thrombosis of deep veins of right upper extremity (3) Status post total replacement of right shoulder Current Visit: Yes Status: Chronic Assessment and plan: as above (4) HTN (hypertension) Current Visit: Yes Status: Chronic Assessment and plan: - Well controlled - Continue home antihypertensives Qualifiers: Hypertension type: essential hypertension Qualified Code(s): I10 - Essential (primary) hypertension (5) Obesity (BMI 30.0-34.9) Current Visit: Yes Status: Chronic Assessment and plan: Chronic issue (6) Pre-operative exam Current Visit: Yes Status: Acute Assessment and plan: - Patient reports no history of cardiac disease - Able to achieve greater than 4 METS without difficulty - No chest pains, shortness of breath - Recently tolerated orthopedic surgery without complications - Likely patient is low risk for low risk surgery - Recent echocardiogram September 2018, stress test in 2018 - We will obtain EKG - No further workup - Time Spent With Patient Total time spent is greater than 50% in coordination of care (as documented) at patient's floor/unit and/or counseling patient: <Cipriano Mtz A - Last Filed: 10/21/18 08:17> Date of Encounter: 10/21/18 Internal Medicine - H&P: HPI History of present illness: Mr. Go is a 63 year old male All Systems PM: A 10-system review of systems was performed and is negative for pertinent findings except as documented above in the HPI. - Constitutional Vitals: Temp Pulse Resp BP Pulse Ox 98 F 95 17 131/76 94 10/21/18 07:20 10/21/18 07:20 10/21/18 07:20 10/21/18 07:20 10/21/18 07:20 Internal Med - H&P Results - Labs CBC & Chem 7: 10/21/18 03:27 10/21/18 03:27 Labs: Short CBC 10/20/18 10/21/18 Range/Units 21:44 03:27 WBC 10.1 10.1 (4.3-11.1) K/mcL Hgb 13.7 12.8 L (12.9-16.9) g/dL Hct 41.1 39.2 (37.5-50.1) % Plt Count 247 222 (140-400) K/mcL Neutrophils # 8.5 8.6 (1.6-8.9) K/mcL BMP 10/20/18 10/21/18 21:44 03:27 Sodium 139 138 Potassium 4.2 4.4 Chloride 104 105 Carbon Dioxide 27 27 BUN 25 H 25 H Creatinine 1.09 0.98 Glucose 143 H 142 H Calcium 8.9 9.0 Liver Function 10/21/18 Range/Units 03:27 Total Bilirubin 1.0 (0.3-1.0) mg/dL AST 15 (13-39) Units/L ALT 19 (7-52) Units/L Alkaline Phosphatase 63 (34-104) Units/L Albumin 3.8 (3.5-5.7) g/dL - Impressions ITS Impressions Humerus X-Ray 10/20/18 18:57 IMPRESSION: Right shoulder: Status post reverse right shoulder arthroplasty with periprosthetic fracture adjacent to the humeral prosthetic stem. Right humerus: Remainder of the right humerus is unremarkable. D/ / Gautam Contreras MD / Gautam Contreras MD Interpreting Provider: Gautam Contreras MD Shoulder X-Ray 10/20/18 18:57 IMPRESSION: Right shoulder: Status post reverse right shoulder arthroplasty with periprosthetic fracture adjacent to the humeral prosthetic stem. Right humerus: Remainder of the right humerus is unremarkable. D/ / Gautam Contreras MD / Gautam Contreras MD Interpreting Provider: Gautam Contreras MD Head CT 10/20/18 23:05 IMPRESSION: No acute intracranial abnormality. Prominent left frontal inner table exostosis versus calcified nodule such as meningioma; no associated mass effect. D/ / Jay Atwood / Jay Atwood Interpreting Provider: Jay Atwood - Time Spent With Patient Total time spent is greater than 50% in coordination of care (as documented) at patient's floor/unit and/or counseling patient: - Attending Attestation I performed a history and physical examination of the patient and discussed their management with the resident. I reviewed the resident's note and agree with the documented plan of care.
[2018-10-21] MEDS ORDERED: *HR* Heparin 5,000 UNIT/ML VIAL IVP ONE (05:00)
[2018-10-21] MEDS ORDERED: *HR* Heparin 5,000 UNIT/ML VIAL IVP PRN ×2 (05:00)
[2018-10-21] MEDS ORDERED: Heparin 25,000 UNIT/250 ML D5W 25,000 UNIT/250 ML IV.SOLN IVC SCH (05:00)
[2018-10-21] MEDS: Diltiazem CD (24hr) 120 MG CAPSULE PO SCH (10:15)
[2018-10-21 11:58] LABS: INR 1.2
--- NOTE | 2018-10-21 12:07 | Orthopedic Consult Note ---
Date of Encounter: 10/21/18 Time of Encounter: 10:30 Assessment and Plan (1) Closed fracture of humerus, shaft Status: Acute Qualifiers: Encounter type: initial encounter Fracture morphology: other fracture Lat erality: right Qualified Code(s): S42.391A - Other fracture of shaft of right humerus, initial encounter for closed fracture (2) DVT (deep venous thrombosis) Status: Acute Qualifiers: DVT location: upper extremity Affected thrombotic vein of extremity: unspecified vein of extremity Chronicity: acute Laterality: right Qualified Code(s): I82.621 - Acute embolism and thrombosis of deep veins of right upper extremity (3) Status post total replacement of right shoulder Status: Acute History of Present Illness Chief complaint: right shoulder fracture HPI: Mr. Go is a 63 year old male POD#22 Total Shoulder Replacment Reverse, right [arthropathy, arthritis] Date: 09/29/2018 Dr. Mota. Patient was last seen in our office on 10/17/18 and had his wound checked and Zipline removed. Patient had been doing very well until yesterday evening when he and his spouse state they were out for a walk and he tripped on the sidewalk leading him to fall. He states he was taught in his previous martial arts classes to roll onto the shoulder and he unfortunately rolled onto his operative right shoulder striking the ground first. He denies head trauma or LOC. He states he had immediate pain and came to the ER for evaluation. PMH involves a recently diagnosed on 10/10/18 right upper extremity DVT of the brachial v and right upper extremity SVT x 2 in the basilic v. Patient was started on Eliquis that day. Patient states last dose of Eliquis was the morning of 10/20. Patient states he has been undergoing recent work up for Hemochromatosis and had an echocardiogram scheduled for 10/22. Xray evaluation of the right shoulder reveals right periprosthetic fracture adjacent to the humeral stem of his right reverse total shoulder replacement. On exam, patient is resting in bed. Spouse at bedside. A&O x 3 Opsite to right shoulder intact - will leave in place for incision protection Slingshot sling to right shoulder in place Nonpitting ededma to RUE No skin disruption noted Wrist ROM intact [facility] strength intact Neurovascularly intact to b/l UE Case discussed with Dr. Mota Plan for right revision total shoulder humeral component 10/22/18 Informed consent, risks/benefits, anticipated postoperative recovery and restrictions, and estimated time of surgery discussed at great detail with patient and spouse. After questions/concerns answered to patient and spouse's satisfaction, informed consent obtained. NPO midnight Patient was started on Heparin drip for his right upper extremity DVT. This is prohibitive for surgery and concerning with patient's fracture for increased bleeding - will require d/c at least 8 hours prior to surgery. Discussed with Dr. Mota who would prefer Lovenox. This was discussed with Dr. Mike ([facility]) who states will change for patient. No shoulder or elbow motion to RUE Nonweightbearing to RUE Thank you for this consultation. Please contact with any concerns or questions. Past Med Surg Social Fam HX - Past Medical History Medical history: arthritis, asthma, DVT, hypertension Additional medical history: thyroid nodule. renal mass/nodule. planter fascitis Psychiatric history: no psych history - Past Surgical History Surgical History: orthopedic, other Additional surgical history: rotator cuff repair. carpal tunnel release. oral surgery. right shoulder surgery - Social History Smoking Status: Never smoker Smokeless Tobacco Status: No Alcohol use: none Drug use: none - Family History Mother Hx Family Cardiac Disorders: Yes (CHF) Father Hx Family Cardiac Disorders: Yes (CHF) Hx Family Cancer: Yes Medications and Allergies Celecoxib [Celebrex] 200 mg PO Q12H 10/19/17 [History] Losartan Potassium [Cozaar] 100 mg PO DAILY 10/19/17 [History] Montelukast [Singulair] 10 mg PO HS PRN 10/19/17 [History] Diltiazem CD (24hr) [Cardizem CD] 120 mg PO DAILY 09/29/18 [History] Apixaban [Eliquis] 5 mg PO BID 10/15/18 [History] OxyCODONE/APAP 5/325 [Percocet 5/325 MG] 1 each PO Q4HR PRN 2 Days #8 tablet 10/20/18 [Rx] Cholecalciferol (D-3) [Vitamin D] 1,000 unit PO DAILY 10/22/18 [History] Docusate [Colace] 100 mg PO BID 30 Days #60 capsule 10/24/18 [Rx] Allergy/AdvReac Type Severity Reaction Status Date / Time No Known Allergies Allergy Verified 10/15/18 11:13 All Systems Reviewed: The remainder of the systems were reviewed and are negative Physical Exam - Constitutional Vitals: Temp Pulse Resp BP Pulse Ox 98.2 F 99 17 145/88 97 10/21/18 10:52 10/21/18 10:52 10/21/18 10:52 10/21/18 10:52 10/21/18 10:52 Results - Labs Result Diagrams: 10/24/18 06:01 10/24/18 06:01 Labs: Abnormal lab results RBC 4.05 M/mcL (4.19-5.50) L 10/21/18 03:27 Hgb 12.8 g/dL (12.9-16.9) L 10/21/18 03:27 PT 14.0 Seconds (9.4-12.1) H 10/21/18 11:32 BUN 25 mg/dL (8-23) H 10/21/18 03:27 Glucose 142 mg/dL (70-105) H 10/21/18 03:27 H & H 10/20/18 10/21/18 Range/Units 21:44 03:27 Hgb 13.7 12.8 L (12.9-16.9) g/dL Hct 41.1 39.2 (37.5-50.1) % All other labs normal. Consult Discharge Plan - Plan Additional Instructions: NO SHOULDER OR ELBOW MOTION Discharge Instructions: Total Shoulder Please call [facility] ([phone]), your Primary Care Physician, or report to the Emergency Room if you have any of the following symptoms: Nausea, vomiting, fever greater that 101.5, swelling, chest pain, shortness of breath, increased pain/redness/drainage/odor for your incision site, numbness/tingling, or any other concerning symptoms. ACTIVITY: Always keep your arm in the sling. Do not raise your arm away from your body. Do not use your arm to help with getting in or out of bed. No weight bearing permitted. Only perform those exercises given to you by your therapist. Incentive Spirometer 10 times an hour. MEDICATIONS: Upon discharge resume your home medications. Take all the medications as prescribed. Take a stool softener if taking narcotic pain medications. Stool softeners are only effective if you drink enough fluids. Drink 6-8 glass of water or fluids a day, unless this is not allowed for another health problem. Despite using stool softeners, if you haven't had a bowel movement in 3 days, please switch to a gentle laxative. Gentle laxatives are sold over the counter. You should have a bowel movement within 24 hours, if not call the office. You will be discharged from the hospital with a prescription for pain medication. You are encouraged to decrease the use of narcotic pain medication as tolerated. Should you require a refill, please call the office. [facility] prescribes narcotic pain medication for only 4-6 weeks after surgery. If you require pain medication beyond this time period, you may be referred to your Primary Care Physician or to the Pain Clinic for further evaluation. Plan ahead for refills on pain medication as many narcotics either need to be picked up at the office or mailed. It is best to call 48-72 hours in advance of needing a prescription refill so you don't run out of medication. To help control the post-operative pain, you may take NSAIDs (Aleve,Advil, Motrin, Ibuprofen, Naprosyn) or Tylenol as prescribed on the bottle in addition to the pain medication. WOUND CARE: Leave the dressing on for 7-10 days. You may change the dressing if it becomes saturated greater than 50%. Do not get the dressing wet at anytime. Wash your hands with antibacterial soap, rinse and dry prior to any wound care. If you have juancho the visiting nurse or rehab facility can remove the stapes 10-14 days after surgery and place steri-strips across the wound. Leave the steri-strips in place until they fall off on their own. You may let water from the shower run on top of the steri-strips. If you do not have a visiting nurse or rehab facility, you will need to return to the office at 10-14 days for the juancho to be removed. If you have itching or redness around the dressing call the office. FOLLOW-UP: Please follow up with your surgeon in the orthopedic clinic, as scheduled Referrals: Martha Joseph PAC [Physician Pharmacy Technician Program Director] - 10/30/18 2:30 pm Cam Mota MD [Partnered Physician] - 11/19/18 3:45 pm Michael Dunham MD [Primary Care Provider] - 04/20/19 8:30 am Prescriptions: Docusate [Colace] 100 mg PO BID 30 Days #60 capsule
--- NOTE | 2018-10-21 14:43 | Event Note ---
Date of Encounter: 10/21/18 Time of Encounter: 12:55 Interval History: Pt is feeling OK, has ain with the movement but still pain is well controlled and he is comfortbale with the regimen. Is being takeb to the surgery tomorrow. Heparin to be stopped at least 8 hours prior to surgery as per ortho, so after coordination wih the ortho, once time is finalized, orders will be put. Starting pt on diet and NPO after midnight. Pt is other torres stable ad no changes.
[2018-10-21 20:05] LABS: Activated Partial Thrombo Time > 360.0 Seconds (26.0-36.0)
[2018-10-21] MEDS: *HR* Enoxaparin 30 MG/0.3 ML SYRINGE SQ SCH (20:34)
[2018-10-21 20:40] LABS: Heparin anti-factor XA UFH 1.83 IU/mL (0.30-0.70)
[2018-10-21] MEDS ORDERED: Acetaminophen IV 1,000 MG/100 ML INFUS..BTL IVPB ONE (21:34)
[2018-10-22] MEDS ORDERED: Acetaminophen IV 500 MG/50 ML INFUS..BTL IVPB ONE (03:57)
[2018-10-22 05:28] LABS: Basophils % 0.3 %; Eosinophils # 0.2 K/mcL (0.0-0.6); Eosinophils % 2.8 %; Hematocrit 36.4 % (37.5-50.1); Hemoglobin 12.1 g/dL (12.9-16.9); Immature Granulocytes % 0.2 % (0-4); Lymphocytes # 1.2 K/mcL (0.6-4.6); Lymphocytes % 18.5 %; Mean Corpuscular HGB Conc 33.2 g/dL (31.6-35.5); Mean Corpuscular Hemoglobin 32.6 pg (28.0-33.3); Mean Corpuscular Volume 98.1 fL (83.0-100.0); Mean Platelet Volume 10.4 fL (9.4-12.4); Monocytes # 0.9 K/mcL (0.0-1.3); Monocytes % 13.6 %; Neutrophils # 4.2 K/mcL (1.6-8.9); Platelet Count 182 K/mcL (140-400); Red Blood Count 3.71 M/mcL (4.19-5.50); Red Cell Distribution Width 11.7 % (11.5-14.5); Segmented Neutrophils % 64.6 %; White Blood Count 6.5 K/mcL (4.3-11.1)
[2018-10-22 05:43] LABS: BUN/Creatinine Ratio 19 (6-26); Blood Urea Nitrogen 18 mg/dL (8-23); Calcium 8.7 mg/dL (8.6-10.3); Carbon Dioxide 26 mEq/L (23-29); Chloride 104 mEq/L (98-107); Glucose 109 mg/dL (70-105); Osmolality,Calculated 288 (280-300); Potassium 4.1 mEq/L (3.5-5.1); Sodium 138 mEq/L (136-145); eGFR For African Americans > 60 (> 60); eGFR For Non-African Americans > 60 (> 60)
--- NOTE | 2018-10-22 06:24 | Orthopedics Progress Note ---
Date of Encounter: 10/22/18 Time of Encounter: 06:24 Subjective Interval history: Patient seen periprosthetic right humerus fracture with loss of fixation of humeral component, plan for revision right shoulder. We reviewed the risks and benefits as well as recovery. All questions were answered. The patient agreed to this treatment plan and acknowledged an understanding of the treatment plan as described. Objective Vital signs: Vital Signs Temp Pulse Resp BP Pulse Ox 10/22/18 04:36 98.3 F 85 17 125/72 92 10/21/18 23:11 98.5 F 92 17 117/69 91 10/21/18 19:12 98.3 F 97 17 132/70 93 10/21/18 14:55 98 F 97 16 124/75 98 10/21/18 10:52 98.2 F 99 17 145/88 97 10/21/18 07:20 98 F 95 17 131/76 94 Intake and Output 10/21/18 10/21/18 10/22/18 15:59 23:59 07:59 Intake Total 91 / 241 150 / 241 1000 / 1000 Output Total 450 / 1550 700 / 1550 Balance -359 / -1309 -550 / -1309 1000 / 1000 Intake: IV Fluids 91 / 241 150 / 241 1000 / 1000 0.9 % Sodium Chloride 1,000 ML 1000 / 1000 @ 75 mls/hr IVC .[id number] [facility] Rx #:[id number] Heparin 25,000 UNIT/250 ML D5W 91 / 241 150 / 241 25,000 unit In 250 ml @ 14 UNIT /KG/HR 13.971 mls/hr IVC . [id number] SUSI Rx#:[id number] Oral 0 / 0 Output: Urine 450 / 1550 700 / 1550 Other: Weight 100.3 kg Patient Weight 10/22/18 23:59 Weight 100.3 kg - Labs CBC & BMP: 10/22/18 04:53 10/22/18 04:53 Labs: Abnormal lab results RBC 3.71 M/mcL (4.19-5.50) L 10/22/18 04:53 Hgb 12.1 g/dL (12.9-16.9) L 10/22/18 04:53 Hct 36.4 % (37.5-50.1) L 10/22/18 04:53 PT 14.0 Seconds (9.4-12.1) H 10/21/18 11:32 APTT > 360.0 Seconds (26.0-36.0) H* D 10/21/18 18:23 Heparin Anti-Xa, Unfract 1.83 IU/mL (0.30-0.70) H* 10/21/18 18:23 BUN 25 mg/dL (8-23) H 10/21/18 03:27 Glucose 109 mg/dL (70-105) H 10/22/18 04:53 Consult Discharge Plan - Plan Referrals: Michael Dunham MD [Primary Care Provider] -
[2018-10-22] MEDS: *HR* Enoxaparin 30 MG/0.3 ML SYRINGE SQ SCH ×2 (07:13→17:35)
[2018-10-22] MEDS: Diltiazem CD (24hr) 120 MG CAPSULE PO SCH (07:39)
--- NOTE | 2018-10-22 11:12 | Anesthesia Evaluation PreOp ---
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 Any Significant HX Other Medical History: Denies Any Significant HX Anesthesia History: No Prior Anesthetic Complications, Past Anesthesia Alcohol Use: occasionally Drug use: none Medications and Allergies Celecoxib [Celebrex] 200 mg PO Q12H 10/19/17 [History] Losartan Potassium [Cozaar] 100 mg PO DAILY 10/19/17 [History] Montelukast [Singulair] 10 mg PO HS PRN 10/19/17 [History] Diltiazem CD (24hr) [Cardizem CD] 120 mg PO DAILY 09/29/18 [History] Apixaban [Eliquis] 5 mg PO BID 10/15/18 [History] OxyCODONE/APAP 5/325 [Percocet 5/325 MG] 1 each PO Q4HR PRN 2 Days #8 tablet 10/20/18 [Rx] Cholecalciferol (D-3) [Vitamin D] 1,000 unit PO DAILY 10/22/18 [History] Allergy/AdvReac Type Severity Reaction Status Date / Time No Known Allergies Allergy Verified 10/15/18 11:13 - Meds/Allergy Pre-op Review Medications Reviewed: Yes Allergies Reviewed: Yes Beta Blockers on Current Med List: No Anesthesia Results - Labs 10/22/18 04:53 10/22/18 04:53 Laboratory Tests 10/21/18 10/21/18 10/22/18 11:32 18:23 04:53 PT 14.0 H INR 1.2 APTT 31.0 D Heparin Anti-Xa, Unfract 1.83 H* - Imaging EKG: report reviewed (08/29/2017 sinus rhythm, possible LAFB) Additional studies: 10/31/2017 Echo Impressions: LVEF 65%. Asymmetric basal septal hypertrophy. No LVOT obstruction. Mild left ventricular diastolic dysfunction. Normal right ventricular structure and function. Mild tricuspid regurgitation. No pulmonary hypertension. 09/27/2017 Stress Findings: Normal sinus rhythm at rest. No baseline arrhythmias were noted. Stress ECG is negative for ischemia. Occasional PVCs and four 4-beat episodes of NSVT during exercise. The patient demonstrated a normal blood pressure response. The exercise capacity was good. No chest pain during stress procedure. Anesthesia Exam Vital Signs/O2 Sat, Most Current Temp Pulse Resp BP Pulse Ox 98.5 F 80 13 128/75 92 10/22/18 09:42 10/22/18 09:42 10/22/18 09:42 10/22/18 09:42 10/22/18 09:42 Height: 5'10"/1.78m Weight: 221 lbs/100.3 kg NPO (# of Hours): 8 Pain Scale: 5 (right shoulder) Pain Scale Used: Numeric (1 - 10) - HEENT Pupil (Motor): EOMI Mallampati: II Teeth: Normal Oral Opening: Greater than 3 - COOL ROOFING INSTALLER LOC: Oriented COOL ROOFING INSTALLER Motor: Normal RUE, Normal LUE, Normal RLE, Normal LLE, Normal Face COOL ROOFING INSTALLER Sensory: Normal: RUE, LUE, RLE, LLE, Face - Cardiac Rhythm: Regular Murmur: None - Pulmonary Breath Sounds: bilateral Clear Respiratory Effort: Symmetrical Anesthesia Assess/Plan ASA Score: 2 Level of consciousness: Cooperative, Oriented, Tranquil Anesthetic Plan: General, Regional Nerve Block Regional Nerve Block Plan: Supraclavicular Monitoring Plan: Standard Monitors Recovery Plan: PACU
[2018-10-22] MEDS ORDERED: Ondansetron 4 MG/2 ML VIAL ONE (12:48)
[2018-10-22] MEDS ORDERED: Dexamethasone 4 MG/ML VIAL ONE (12:48)
[2018-10-22] MEDS ORDERED: *HR* Succinylcholine 200 MG/10 ML VIAL IVP ONE (12:48)
[2018-10-22] MEDS ORDERED: *HR* FentaNYL (PF) 100 MCG/2 ML VIAL ONE ×2 (12:51→13:08)
[2018-10-22] MEDS ORDERED: Lidocaine -MPF 2% 2 ML VIAL ONE (12:51)
[2018-10-22] MEDS ORDERED: Tranexamic Acid 1,000 MG/10 ML VIAL ONE (12:51)
[2018-10-22] MEDS ORDERED: *HR* Midazolam HCl 2 MG/2 ML VIAL ONE (12:51)
[2018-10-22] MEDS ORDERED: Propofol 500 MG/50 ML INFUS..BTL ONE (12:51)
[2018-10-22] MEDS ORDERED: Lidocaine -MPF 4% 5 ML AMPUL ONE (12:53)
[2018-10-22] MEDS ORDERED: Ropivacaine/PF 0.5% 30 ML VIAL ONE (13:08)
[2018-10-22] MEDS ORDERED: *HR* HYDROmorphone (PF) 1 MG/ML SYRINGE IVP PRN (13:15)
[2018-10-22] MEDS ORDERED: ceFAZolin 2,000 MG in Water for inj. (sterile) 20 ML IVP ONE (13:17)
[2018-10-22] MEDS ORDERED: ROPIVACAINE/PF/NS 0.25% 1 EACH SYRINGE INTRAART ONE (13:17)
[2018-10-22] MEDS ORDERED: Ethanol\\Acetic Acid\\Na Ace\\Ben 1,000 ML IRRIG.SOLN IR ONE (13:21)
--- NOTE | 2018-10-22 13:46 | Anesthesia Procedures ---
Date of Encounter: 10/22/18 Time of Encounter: 13:27 Procedures: Anesthesia - Nerve Block Procedure Date: 10/22/18 Time: 13:27 Allergies/Adv Reactions: NKA Pre-op Diagnosis: Periprosthetic R humerus fracture Surgical Procedure: R total shoulder revision Checklist: Correct Patient Identifier, Correct procedure, History checked Correct side: Right Blood Thinner: Yes (last prophylactic lovenox 0700 this am) Monitor Applied: EKG, BP, Pulse Oximetry Supplemental Oxygen via Nasal Cannula (L/min): 3 Sedation: Versed (mg): 2 Sedation: Fentanyl (mcg): 50 Indication: Post Op Analgesia Pre-op Neuro Deficits: No Block Type: Supraclavicular Catheter placed: No Sterile Technique: Yes Ultrasound used: Yes Anatomy identified: Yes Visual spread of Local: Yes Neuro Stimulation: No Blood on Needle Aspiration: No Smooth Injection of Local: Yes Pain with Injection of Local: No Prep: Chlorhexadine Needle: 22 x 50 mm Stimuplex Local: Ropivacaine Volume (cc): 0.5% 30ml ropiv for SC Number of Attempts: 1 Complications: None/effective block Vitals: Vital Signs Temperature 97.9 F 10/20/18 17:41 Pulse Rate 95 10/20/18 17:41 Respiratory Rate 20 10/20/18 17:41 Blood Pressure 141/84 10/20/18 17:41 O2 Sat by Pulse Oximetry 94 10/20/18 17:41 Temperature 98.5 F 10/22/18 11:46 Pulse Rate 76 10/22/18 13:38 Respiratory Rate 16 10/22/18 13:38 Blood Pressure 126/73 10/22/18 13:38 O2 Sat by Pulse Oximetry 96 10/22/18 13:38 Oxygen Delivery Oxygen Delivery Room Air Comments: 10ml 0.25% ropivacaine for superficial cervical plexus block, 10ml o.25% ropivacaine for intercostalbrachial block
--- NOTE | 2018-10-22 14:38 | Orthopedic Operative Note ---
Date of procedure: 10/22/18 Pre-op diagnosis: Comminuted displaced right periprosthetic humeral fracture Post-op diagnosis: same Procedure: Procedure: Revision right humeral component with fixation of fracture for reverse total shoulder Estimated blood loss: 300 cc Hardware: Metal and polyethylene replacement: Arthrex 9 revision humeral stem, poly insert 3 constrained, 9 metal spacer, 3 Arthrex cerclage fiber tapes one ELVIA drain Procedural Notes: Patient with a significantly comminuted proximal humerus fracture at least 5 pieces. Loosening of right humeral component Operative procedure: The patient was brought to the operating room and placed on the operating room table. After general anesthesia was administered the operative shoulder was examined. Findings were noted. The patient was placed in the modified beachchair position. All pressure points were padded appropriately. And the head was stabilized in the neutral position. The operative extremity was prepped and draped in the sterile surgical fashion. The patient received IV antibiotics prior to skin incision. An extended deltopectoral approach was made to the operative shoulder. Incision was made through the old incision, through the the skin and subcutaneous tissue,hemo stasis was obtained with Bovie cautery. Using careful blunt dissection the cephalic vein was identified and mobilized medially. The deltopectoral interval was developed the patient had a significant hematoma, this was cultured and evacuated. Examination of the proximal humerus revealed extensive comminution around the humeral component which was loose as a result. The shoulder was dislocated the humeral component was removed. The comminution extended down to the humerus. The glenoid component was without issue. The humerus was prepared with a broaching process up to a size revision 9 in 20 degrees of retroversion. The trials stem was removed the real stem was seated and secured in 20 degrees of retroversion trial reduction revealed excellent motion and stability with a +9 metal spacer and a 3 constrained Linda spacer. Shoulder was then reduced. Using careful subperiosteal dissection, 3 Arthrex cerclage fiber tapes were passed around the fracture fragments securing them to the humeral component. This gave good fixation. The shoulder was stable. The deep tissue was irrigated with pulse irrigation. The PA close the shoulder. The deltopectoral interval was closed over a ELVIA drain with a running #1 PDS suture, subcutaneous tissue was irrigated and closed with 0 PDS suture, the skin was closed with Dermabond. The patient was placed in a sterile dressing, abduction brace and extubated. The patient was then transferred to the recovery room in stable condition. Anesthesia: GETA Surgeon: Cam Mota Was there an licensed physical therapy assistant present: Yes Mechanical Assembly: Atif Mayberry Estimated blood loss (cc): 300 Condition: stable Disposition: PACU
[2018-10-22 15:27] LABS: Hematocrit 38.1 % (37.5-50.1); Hemoglobin 12.4 g/dL (12.9-16.9)
--- NOTE | 2018-10-22 15:50 | Anesthesia Evaluation Post Op ---
Date of Encounter: 10/22/18 Time of Encounter: 15:48 - Vital Signs Vital Signs: Vital Signs/O2 Sat, Most Current Temp Pulse Resp BP Pulse Ox 97.2 F L 83 16 125/78 95 10/22/18 15:42 10/22/18 15:42 10/22/18 15:42 10/22/18 15:42 10/22/18 15:42 - Lungs Lungs: Clear Ascult./Percussion - Airway Airway: Non-obstructed - Cardiovascular Regular Rate - Mental Status Mental Status: Alert & Oriented, Answers Appropriately - Pain Pain Scale: 0 Pain Scale used: Numeric (1 - 10) - Nausea Vomiting Nausea Vomiting: Not Present - Hydration Hydration: Ice chips, Has not voided - Discharge PostOp Status: Transfer Patient to floor
--- NOTE | 2018-10-22 16:31 | Internal Med Progress Note ---
Hospitalist Progress Note - Encounter Date of Encounter: 10/22/18 Time of Encounter: 16:29 - Subjective Interval History: I have seen and evaluated the patient at bedside. Patient reports feeling ok, denies pain on his right shoulder, denies chest pain, nausea or vomiting, denies abdominal pain. - Exam Vitals: Temp Pulse Resp BP Pulse Ox 97.2 F L 86 16 123/72 94 10/22/18 16:22 10/22/18 16:22 10/22/18 16:22 10/22/18 16:22 10/22/18 16:22 Exam: Swathi:s: Reviewed General: Alert and oriented x4. In mild distress due to right shoulder discomfort Cardiovascular: RRR, normal S1 & S2, no rubs, murmurs or gallops. Lungs: CTA b/l, no wheezes or crackles. Abdomen: Soft, non-tender, no rigidity. Extremities: right upper ext slightly symmetrically bigger than left, ELVIA drain with minimal secretion. Neurological: Normal cognition and motor skills. Rest of the physical exam is non contributory - Assessment and Plan (1) Closed fracture of humerus, shaft Current Visit: Yes Status: Acute Assessment and Plan: S/P: Revision right humeral component with fixation of fracture for reverse total shoulder pain control daily PT/OT ortho recommendations appreciated (2) DVT (deep venous thrombosis) Current Visit: Yes Status: Chronic Assessment and Plan: will discuss with ortho about when to resume Apixaban 5mg/PO BID. started on enoxaparin 30mg/SubQ BID per ortho team (3) HTN (hypertension) Current Visit: Yes Status: Chronic Assessment and Plan: Blood pressure is well controlled on losartan 100 mg by mouth daily. And diltiazem 120 mg by mouth daily. (4) Obesity (BMI 30.0-34.9) Current Visit: Yes Status: Chronic DVT Prophylaxis: patient on an oral anticoagulant - Summary of Assessment and Plan Summary of Assessment and Plan: patient to remain in the hospital s/p Revision right humeral component with fixation of fracture for reverse total shoulder - Time Spent with Patient Total time spent is greater than 50% in coordination of care (as documented) at patient's floor/unit and/or counseling patient: Greater than 35 minutes (40) Plan of Care Discussed with: patient Internal Medicine: Result - Labs CBC & Chem 7: 10/22/18 15:15 10/22/18 04:53 Labs: Short CBC 10/22/18 10/22/18 Range/Units 04:53 15:15 WBC 6.5 (4.3-11.1) K/mcL Hgb 12.1 L 12.4 L (12.9-16.9) g/dL Hct 36.4 L 38.1 (37.5-50.1) % Plt Count 182 (140-400) K/mcL Neutrophils # 4.2 (1.6-8.9) K/mcL BMP 10/22/18 04:53 Sodium 138 Potassium 4.1 Chloride 104 Carbon Dioxide 26 BUN 18 Creatinine 0.95 Glucose 109 H Calcium 8.7 - ABG Interpretation ABG results: PT/INR, D-dimer PT 14.0 Seconds (9.4-12.1) H 10/21/18 11:32 - Impressions Impressions Shoulder X-Ray 10/22/18 16:00 IMPRESSION: Expected postsurgical changes from interval revision of right reverse shoulder arthroplasty. Proximal humeral periprosthetic fracture is otherwise stable in alignment. D/ / 10/22/2018 15:55:05 Cristina Melendez MD / [facility] Interpreting Provider: Cristina Melendez MD Consult Discharge Plan - Plan Referrals: Michael Dunham MD [Primary Care Provider] - (1) Closed fracture of humerus, shaft Qualifiers: Encounter type: initial encounter Fracture morphology: other fracture Laterality: right Qualified Code(s): S42.391A - Other fracture of shaft of right humerus, initial encounter for closed fracture (2) DVT (deep venous thrombosis) Qualifiers: DVT location: lower extremity Affected thrombotic vein of extremity: unspecified vein of extremity Chronicity: chronic Laterality: unspecified laterality Qualified Code(s): I82.509 - Chronic embolism and thrombosis of unspecified deep veins of unspecified lower extremity (3) HTN (hypertension) Qualifiers: Hypertension type: essential hypertension Qualified Code(s): I10 - Essential (primary) hypertension
[2018-10-22] MEDS ORDERED: MOM Conc 10 ML UD.LIQ PO PRN (16:39)
[2018-10-22] MEDS ORDERED: Temazepam 15 MG CAPSULE PO PRN (16:39)
[2018-10-22] MEDS ORDERED: Sennosides 8.6 MG TABLET PO PRN (16:39)
[2018-10-22] MEDS ORDERED: Ringers Solution, Lactated 1,000 ML IVC SCH (16:39)
[2018-10-22] MEDS ORDERED: Ondansetron 4 MG/2 ML VIAL IVP PRN (16:39)
[2018-10-23 05:55] LABS: Hematocrit 33.8 % (37.5-50.1); Hemoglobin 11.3 g/dL (12.9-16.9)
[2018-10-23 06:21] LABS: BUN/Creatinine Ratio 21 (6-26); Blood Urea Nitrogen 19 mg/dL (8-23); Calcium 8.8 mg/dL (8.6-10.3); Carbon Dioxide 24 mEq/L (23-29); Chloride 103 mEq/L (98-107); Glucose 164 mg/dL (70-105); Osmolality,Calculated 290 (280-300); Potassium 4.2 mEq/L (3.5-5.1); Sodium 137 mEq/L (136-145); eGFR For African Americans > 60 (> 60); eGFR For Non-African Americans > 60 (> 60)
[2018-10-23] MEDS: *HR* Enoxaparin 30 MG/0.3 ML SYRINGE SQ SCH (06:39)
--- NOTE | 2018-10-23 08:22 | Orthopedics Progress Note ---
Date of Encounter: 10/23/18 Time of Encounter: 09:25 - Assessment and Plan (1) Closed fracture of humerus, shaft Status: Acute Status post Revision right humeral component with fixation of fracture for reverse total shoulder [Comminuted displaced right periprosthetic humeral fractu re] 10/22/18 Dr. Mota Qualifiers: Encounter type: initial encounter Fracture morphology: other fracture Laterality: right Qualified Code(s): S42.391A - Other fracture of shaft of right humerus, initial encounter for closed fracture (2) DVT (deep venous thrombosis) Status: Acute Qualifiers: DVT location: upper extremity Affected thrombotic vein of extremity: unspecified vein of extremity Chronicity: acute Laterality: right Qualified Code(s): I82.621 - Acute embolism and thrombosis of deep veins of right upper extremity (3) Status post total replacement of right shoulder Status: Acute Subjective Principal diagnosis: right shoulder fracture Interval history: POD#1 Revision right humeral component with fixation of fracture for reverse total shoulder [Comminuted displaced right periprosthetic humeral fracture] 10/22/18 Dr. Mota R TSR REVERSE 09/29/18 Dr. Mota Patient seen at bedside. Spouse at bedside. A&Ox3 Dressing and incision c/d/i ELVIA drain in place Slingshot brace in place Swelling improving No calf tenderness, erythema, or warmth. Neurovascularly intact b/l UE. Labwork, vitals, and medications reviewed. Pain control: Adequate Participating in therapy. All questions and concerns addressed. Educated on use of incentive spirometer, ambulation, and hydration. Patient educated on post-operative restrictions and care. Addressed: ELVIA drain with ongoing output Hospitalist managing anticoagulant for right upper extremity DVT diagnosed on 10/10/18 NO SHOULDER OR ELBOW MOTION NONWEIGHTBEARING TO OPERATIVE EXTREMITY REMAIN IN SLINGSHOT BRACE WITH PILLOW REMOVE BRACE FOR HYGIENE ONLY PRACTICE [place] COOK EXERCISES ONLY Opsite placed. Keep dressing intact until first follow up appointment. If greater than 50% saturated, notify office, remove dressing and place appropriate dressing back in place. Leave Zipline intact. Opsite dressing is water resistant, not water-proof. OK to shower, but do not get dressing wet. Patient course and disposition discussed with Dr. Mota D/C plan: Home with outpatient orthopedic follow up likely tomorrow depending on drain output Objective Vital signs: Vital Signs Temp Pulse Resp BP Pulse Ox 10/23/18 06:51 98.3 F 84 16 126/83 95 10/23/18 04:27 98.1 F 87 15 131/79 93 10/23/18 00:05 97.8 F 86 18 120/66 94 10/22/18 20:10 98.4 F 89 18 108/70 94 10/22/18 17:40 87 16 134/83 94 10/22/18 16:54 98.6 F 83 16 117/75 95 10/22/18 16:22 97.2 F L 86 16 123/72 94 10/22/18 16:12 80 17 135/71 93 10/22/18 16:02 97.2 F L 82 15 130/73 94 10/22/18 15:52 87 16 128/79 94 10/22/18 15:42 83 16 125/78 95 10/22/18 15:32 97.2 F L 87 17 126/77 94 10/22/18 15:22 85 13 129/72 96 10/22/18 15:12 87 18 125/71 94 10/22/18 15:02 97.4 F L 81 12 113/68 100 10/22/18 13:38 76 16 126/73 96 10/22/18 13:34 77 16 119/69 95 10/22/18 13:28 83 18 138/76 96 10/22/18 11:46 98.5 F 84 16 129/74 95 10/22/18 11:33 86 14 127/75 99 10/22/18 09:42 98.5 F 80 13 128/75 92 Intake and Output 10/22/18 10/23/18 10/23/18 23:59 07:59 15:59 Intake Total 460 / 1460 Output Total 1820 / 2400 58 / 58 Balance -1360 / -940 -58 / -58 Intake: IV Fluids 100 / 1100 Ancef 2,000 MG In 0.9 % Sodium 100 / 100 Chloride 100 ML @ 200 mls/hr IVPB Q8H [facility] Rx#:[id number] Oral 360 / 360 Output: Urine 172 / 2024 0 / 0 Wound Drainage 95 / 95 58 / 58 Right Shoulder 95 / 95 58 / 58 Other: Weight 100.5 kg - Labs CBC & BMP: 10/24/18 06:01 10/24/18 06:01 Labs: Abnormal lab results RBC 3.71 M/mcL (4.19-5.50) L 10/22/18 04:53 Hgb 11.3 g/dL (12.9-16.9) L 10/23/18 04:12 Hct 33.8 % (37.5-50.1) L 10/23/18 04:12 PT 14.0 Seconds (9.4-12.1) H 10/21/18 11:32 APTT > 360.0 Seconds (26.0-36.0) H* D 10/21/18 18:23 Heparin Anti-Xa, Unfract 1.83 IU/mL (0.30-0.70) H* 10/21/18 18:23 BUN 25 mg/dL (8-23) H 10/21/18 03:27 Glucose 164 mg/dL (70-105) H 10/23/18 04:12 Consult Discharge Plan - Plan Additional Instructions: NO SHOULDER OR ELBOW MOTION Discharge Instructions: Total Shoulder Please call [facility] ([phone]), your Primary Care Physician, or report to the Emergency Room if you have any of the following symptoms: Nausea, vomiting, fever greater that 101.5, swelling, chest pain, shortness of breath, increased pain/redness/drainage/odor for your incision site, numbness/tingling, or any other concerning symptoms. ACTIVITY: Always keep your arm in the sling. Do not raise your arm away from your body. Do not use your arm to help with getting in or out of bed. No weight bearing permitted. Only perform those exercises given to you by your therapist. Incentive Spirometer 10 times an hour. MEDICATIONS: Upon discharge resume your home medications. Take all the medications as prescribed. Take a stool softener if taking narcotic pain medications. Stool softeners are only effective if you drink enough fluids. Drink 6-8 glass of water or fluids a day, unless this is not allowed for another health problem. Despite using stool softeners, if you haven't had a bowel movement in 3 days, please switch to a gentle laxative. Gentle laxatives are sold over the counter. You should have a bowel movement within 24 hours, if not call the office. You will be discharged from the hospital with a prescription for pain medication. You are encouraged to decrease the use of narcotic pain medication as tolerated. Should you require a refill, please call the office. [facility] prescribes narcotic pain medication for only 4-6 weeks after surgery. If you require pain medication beyond this time period, you may be referred to your Primary Care Physician or to the Pain Clinic for further evaluation. Plan ahead for refills on pain medication as many narcotics either need to be picked up at the office or mailed. It is best to call 48-72 hours in advance of needing a prescription refill so you don't run out of medication. To help control the post-operative pain, you may take NSAIDs (Aleve,Advil, Motrin, Ibuprofen, Naprosyn) or Tylenol as prescribed on the bottle in addition to the pain medication. WOUND CARE: Leave the dressing on for 7-10 days. You may change the dressing if it becomes saturated greater than 50%. Do not get the dressing wet at anytime. Wash your hands with antibacterial soap, rinse and dry prior to any wound care. If you have juancho the visiting nurse or rehab facility can remove the stapes 10-14 days after surgery and place steri-strips across the wound. L eave the steri-strips in place until they fall off on their own. You may let water from the shower run on top of the steri-strips. If you do not have a visiting nurse or rehab facility, you will need to return to the office at 10-14 days for the juancho to be removed. If you have itching or redness around the dressing call the office. FOLLOW-UP: Please follow up with your surgeon in the orthopedic clinic, as scheduled Referrals: Martha Joseph PAC [Physician Facilities Operator] - 10/30/18 2:30 pm Cam Mota MD [Partnered Physician] - 11/19/18 3:45 pm Michael Dunham MD [Primary Care Provider] - 04/20/19 8:30 am Prescriptions: Docusate [Colace] 100 mg PO BID 30 Days #60 capsule
[2018-10-23] MEDS: Diltiazem CD (24hr) 120 MG CAPSULE PO SCH (09:29)
[2018-10-23] MEDS ORDERED: Apixaban 5 MG TABLET PO SCH (10:00)
--- NOTE | 2018-10-23 13:56 | Internal Med Progress Note ---
Hospitalist Progress Note - Encounter Date of Encounter: 10/23/18 Time of Encounter: 13:54 - Subjective Interval History: I have seen and evaluated the patient at bedside. patient reports feeling well, denies chest pain, shortness of breath, nausea or vomiting. reports minimal 2/10 pain on the right shoulder. - Exam Vitals: Temp Pulse Resp BP Pulse Ox 98.2 F 72 16 155/76 99 10/23/18 11:57 10/23/18 11:57 10/23/18 11:57 10/23/18 11:57 10/23/18 11:57 Exam: Swathi:s: Reviewed General: Alert and oriented x4. No acute distress Cardiovascular: RRR, normal S1 & S2, no rubs, murmurs or gallops. Lungs: CTA b/l, no wheezes or crackles. Abdomen: Soft, non-tender, no rigidity. NABS in all 4 quadrants Extremities: right upper ext slightly symmetrically bigger than left, ELVIA drain with minimal secretion. Neurological: No focal neurological deficits Rest of the physical exam is non contributory - Assessment and Plan (1) Closed fracture of humerus, shaft Current Visit: Yes Status: Acute Assessment and Plan: S/P: POD #1 revision right humeral component with fixation of fracture for reverse total shoulder Plan continue with pain control and daily PT/OT ortho recommendations appreciated On senna plus no movement of the right should or elbow (2) DVT (deep venous thrombosis) Current Visit: Yes Status: Acute Assessment and Plan: discussed with Ortho team and agreed on starting the patient on Apixaban 5mg/PO BID. (3) HTN (hypertension) Current Visit: Yes Status: Chronic Assessment and Plan: BP is well controlled on losartan 100mg/PO daily and diltiazem 120mg/PO daily. (4) Obesity (BMI 30.0-34.9) Current Visit: Yes Status: Chronic DVT Prophylaxis: Intermittent pneumatic compression - Summary of Assessment and Plan Summary of Assessment and Plan: Patient to remain in the hospital S/P: POD #1 revision right humeral component with fixation of fracture for reverse total shoulder - Time Spent with Patient Total time spent is greater than 50% in coordination of care (as documented) at patient's floor/unit and/or counseling patient: Internal Medicine: Result - Labs CBC & Chem 7: 10/23/18 04:12 10/23/18 04:12 Labs: Short CBC 10/22/18 10/23/18 Range/Units 15:15 04:12 Hgb 12.4 L 11.3 L (12.9-16.9) g/dL Hct 38.1 33.8 L (37.5-50.1) % BMP 10/23/18 04:12 Sodium 137 Potassium 4.2 Chloride 103 Carbon Dioxide 24 BUN 19 Creatinine 0.91 Glucose 164 H Calcium 8.8 - ABG Interpretation ABG results: PT/INR, D-dimer PT 14.0 Seconds (9.4-12.1) H 10/21/18 11:32 - Impressions Impressions Shoulder X-Ray 10/22/18 16:00 IMPRESSION: Expected postsurgical changes from interval revision of right reverse shoulder arthroplasty. Proximal humeral periprosthetic fracture is otherwise stable in alignment. D/ / 10/22/2018 15:55:05 Cristina Melendez MD / [facility] Interpreting Provider: Cristina Melendez MD Consult Discharge Plan - Plan Referrals: Michael Dunham MD [Primary Care Provider] - (1) Closed fracture of humerus, shaft Qualifiers: Encounter type: initial encounter Fracture morphology: other fracture Laterality: right Qualified Code(s): S42.391A - Other fracture of shaft of right humerus, initial encounter for closed fracture (2) DVT (deep venous thrombosis) Qualifiers: DVT location: lower extremity Affected thrombotic vein of extremity: unspecified vein of extremity Chronicity: chronic Laterality: unspecified laterality Qualified Code(s): I82.509 - Chronic embolism and thrombosis of unspecified deep veins of unspecified lower extremity (3) HTN (hypertension) Qualifiers: Hypertension type: essential hypertension Qualified Code(s): I10 - Essential (primary) hypertension
[2018-10-23] MEDS: Apixaban 5 MG TABLET PO SCH (21:04)
[2018-10-23] MEDS: Acetaminophen IV 1,000 MG/100 ML INFUS..BTL IVPB PRN (22:46)
[2018-10-24 06:51] LABS: Hematocrit 34.6 % (37.5-50.1); Hemoglobin 11.2 g/dL (12.9-16.9)
[2018-10-24 07:08] LABS: BUN/Creatinine Ratio 23 (6-26); Blood Urea Nitrogen 22 mg/dL (8-23); Calcium 8.7 mg/dL (8.6-10.3); Carbon Dioxide 30 mEq/L (23-29); Chloride 104 mEq/L (98-107); Glucose 117 mg/dL (70-105); Osmolality,Calculated 294 (280-300); Potassium 3.8 mEq/L (3.5-5.1); Sodium 140 mEq/L (136-145); eGFR For African Americans > 60 (> 60); eGFR For Non-African Americans > 60 (> 60)
[2018-10-24 07:33] LABS: Magnesium 1.8 mg/dL (1.6-2.6); Phosphorous 3.2 mg/dL (2.7-4.5)
--- NOTE | 2018-10-24 07:59 | Orthopedics Progress Note ---
Date of Encounter: 10/24/18 Time of Encounter: 08:45 - Assessment and Plan (1) Status post total replacement of right shoulder Status: Acute (2) Closed fracture of humerus, shaft Status: Acute Status post Revision right humeral component with fixation of fracture for reverse total shoulder [Comminuted displaced right periprosthetic humeral fracture] 10/22/18 Dr. Mota Qualifiers: Encounter type: initial encounter Fracture morphology: other fracture Laterality: right Qualified Code(s): S42.391A - Other fracture of shaft of ri ght humerus, initial encounter for closed fracture (3) DVT (deep venous thrombosis) Status: Acute Qualifiers: DVT location: upper extremity Affected thrombotic vein of extremity: unspecified vein of extremity Chronicity: acute Laterality: right Qualified Code(s): I82.621 - Acute embolism and thrombosis of deep veins of right upper extremity Subjective Principal diagnosis: right shoulder surgery Interval history: POD#2 Revision right humeral component with fixation of fracture for reverse total shoulder [Comminuted displaced right periprosthetic humeral fracture] 10/22/18 Dr. Mota R TSR REVERSE 09/29/18 Dr. Mota Patient seen at bedside. Spouse at bedside. A&Ox3 Dressing and incision c/d/i Slingshot brace in place Swelling improving No calf tenderness, erythema, or warmth. Neurovascularly intact b/l UE. Labwork, vitals, and medications reviewed. Pain control: Adequate Participating in therapy. All questions and concerns addressed. Educated on use of incentive spirometer, ambulation, and hydration. Patient educated on post-operative restrictions and care. Addressed: ELVIA drain to be removed this afternoon. Patient was restarted on Eliquis for right upper extremity DVT NO SHOULDER OR ELBOW MOTION NONWEIGHTBEARING TO OPERATIVE EXTREMITY REMAIN IN SLINGSHOT BRACE WITH PILLOW REMOVE BRACE FOR HYGIENE ONLY PRACTICE [place] MANAGER EXERCISES ONLY Opsite placed. Keep dressing intact until first follow up appointment. If greater than 50% saturated, notify office, remove dressing and place appropriate dressing back in place. Leave Zipline intact. Opsite dressing is water resistant, not water-proof. OK to shower, but do not get dressing wet. Patient course and disposition discussed with Dr. Mota D/C plan: Home with outpatient orthopedic follow up arranged when medically cleared for discharge by hospitalist team Objective Vital signs: Vital Signs Temp Pulse Resp BP Pulse Ox 10/24/18 06:42 97.7 F 82 15 135/72 95 10/23/18 20:33 97.6 F 88 17 118/54 94 10/23/18 17:08 98.2 F 102 16 137/78 93 10/23/18 11:57 98.2 F 72 16 155/76 99 Intake and Output 10/23/18 10/23/18 10/24/18 15:59 23:59 07:59 Intake Total 450 / 450 Output Total 50 / 141 33 / 141 Balance -50 / 309 417 / 309 Intake: IV Fluids 100 / 100 Ofirmev 1,000 mg/100 ml 1,000 100 / 100 mg In 100 ml @ 400 mls/hr IVPB Q6HR PRN Rx#:[id number] Oral 350 / 350 Output: Other 50 / 50 Wound Drainage Right Shoulder Other: # Voids 1 1 1 - Labs CBC & BMP: 10/24/18 06:01 10/24/18 06:01 Labs: Abnormal lab results RBC 3.71 M/mcL (4.19-5.50) L 10/22/18 04:53 Hgb 11.2 g/dL (12.9-16.9) L 10/24/18 06:01 Hct 34.6 % (37.5-50.1) L 10/24/18 06:01 PT 14.0 Seconds (9.4-12.1) H 10/21/18 11:32 APTT > 360.0 Seconds (26.0-36.0) H* D 10/21/18 18:23 Heparin Anti-Xa, Unfract 1.83 IU/mL (0.30-0.70) H* 10/21/18 18:23 Carbon Dioxide 30 mEq/L (23-29) H 10/24/18 06:01 BUN 25 mg/dL (8-23) H 10/21/18 03:27 Glucose 117 mg/dL (70-105) H 10/24/18 06:01 Consult Discharge Plan - Plan Additional Instructions: NO SHOULDER OR ELBOW MOTION Discharge Instructions: Total Shoulder Please call [facility] ([phone]), your Primary Care Physician, or report to the Emergency Room if you have any of the following symptoms: Nausea, vomiting, fever greater that 101.5, swelling, chest pain, shortness of breath, increased pain/redness/drainage/odor for your incision site, numbness/tingling, or any other concerning symptoms. ACTIVITY: Always keep your arm in the sling. Do not raise your arm away from your body. Do not use your arm to help with getting in or out of bed. No weight bearing permitted. Only perform those exercises given to you by your therapist. Incentive Spirometer 10 times an hour. MEDICATIONS: Upon discharge resume your home medications. Take all the medications as prescribed. Take a stool softener if taking narcotic pain medications. Stool softeners are only effective if you drink enough fluids. Drink 6-8 glass of water or fluids a day, unless this is not allowed for another health problem. Despite using stool softeners, if you haven't had a bowel movement in 3 days, please switch to a gentle laxative. Gentle laxatives are sold over the counter. You should have a bowel movement within 24 hours, if not call the office. You will be discharged from the hospital with a prescription for pain medication. You are encouraged to decrease the use of narcotic pain medication as tolerated. Should you require a refill, please call the office. [facility] prescribes narcotic pain medication for only 4-6 weeks after surgery. If you require pain medication beyond this time period, you may be referred to your Primary Care Physician or to the Pain Clinic for further evaluation. Plan ahead for refills on pain medication as many narcotics either need to be picked up at the office or mailed. It is best to call 48-72 hours in advance of needing a prescription refill so you don't run out of medication. To help control the post-operative pain, you may take NSAIDs (Aleve,Advil, Motrin, Ibuprofen, Naprosyn) or Tylenol as prescribed on the bottle in addition to the pain medication. WOUND CARE: Leave the dressing on for 7-10 days. You may change the dressing if it becomes saturated greater than 50%. Do not get the dressing wet at anytime. Wash your hands with antibacterial soap, rinse and dry prior to any wound care. If you have juancho the visiting nurse or rehab facility can remove the stapes 10-14 days after surgery and place steri-strips across the wound. Leave the steri-strips in place until they fall off on their own. You may let water from the shower run on top of the steri-strips. If you do not have a visiting nurse or rehab facility, you will need to return to the office at 10-14 days for the juancho to be removed. If you have itching or redness around the dressing call the office. FOLLOW-UP: Please follow up with your surgeon in the orthopedic clinic, as scheduled Referrals: Martha Joseph PAC [Physician Coutierier] - 10/30/18 2:30 pm Cam Mota MD [Partnered Physician] - 11/19/18 3:45 pm Michael Dunham MD [Primary Care Provider] - 04/20/19 8:30 am Prescriptions: Docusate [Colace] 100 mg PO BID 30 Days #60 capsule
[2018-10-24] MEDS: Apixaban 5 MG TABLET PO SCH (08:00)
[2018-10-24] MEDS: Diltiazem CD (24hr) 120 MG CAPSULE PO SCH (08:00)
[2018-10-24] MEDS: Acetaminophen IV 1,000 MG/100 ML INFUS..BTL IVPB PRN (09:31)
[2018-10-24 14:37] VITALS: BP 131/73
--- NOTE | 2018-10-24 14:43 | Discharge Summary ---
Orders not resulted at time of discharge: Pending orders 10/22/18 13:15 US anesthesia pain block [US] Routine 10/22/18 14:14 Culture,Anaerobic [RM] Routine 10/22/18 14:32 Surgical Pathology [PTH] Routine Date of Encounter: 10/24/18 Time of Encounter: 14:43 - Discharge Diagnosis (1) Closed fracture of humerus, shaft Priority: Primary Status: Resolved Qualifiers: Encounter type: initial encounter Fracture morphology: other fracture Laterality: right Qualified Code(s): S42.391A - Other fracture of shaft of right humerus, initial encounter for closed fracture (2) DVT (deep venous thrombosis) Priority: Secondary Status: Chronic Qualifiers: DVT location: lower extremity Affected thrombotic vein of extremity: unspecified vein of extremity Chronicity: chronic Laterality: unspecified laterality Qualified Code(s): I82.509 - Chronic embolism and thrombosis of unspecified deep veins of unspecified lower extremity (3) HTN (hypertension) Priority: Secondary Status: Chronic Qualifiers: Hypertension type: essential hypertension Qualified Code(s): I10 - Essential (primary) hypertension (4) Obesity (BMI 30.0-34.9) Priority: Secondary Status: Chronic Hospital course: Mr. Go is a 63 year old male past medical history of asthma, DVT, hypertension presents the emergency department following a mechanical fall. Of note, patient was recently admitted to this facility and underwent a right total shoulder arthroplasty 3 weeks ago. X-rays of the shoulder and humerus were obtained and showed status post reverse right shoulder arthroplasty with periprosthetic fracture adjacent to the humeral prosthetic stem. Patient underwent revision right humeral component with fixation of fracture for reverse total shoulder. PT/OT evaluated the patient, no needs found. patient clinically stable to be discharged home. Recommended no motion of the right shoulder and right elbow. Scheduled to follow up with ortho as outpatient. - Time Spent with Patient Total time spent providing and/or coordinating discharge services: Time spent: Greater than 30 minutes (35) - Discharge Medications Prescriptions: New OxyCODONE/APAP 5/325 [Percocet 5/325 MG] 1 each PO Q4HR PRN 2 Days #8 tablet PRN Reason: Pain Docusate [Colace] 100 mg PO BID 30 Days #60 capsule Continued Losartan Potassium [Cozaar] 100 mg PO DAILY Celecoxib [Celebrex] 200 mg PO Q12H Montelukast [Singulair] 10 mg PO HS PRN PRN Reason: Allergy Symptoms Diltiazem CD (24hr) [Cardizem CD] 120 mg PO DAILY Apixaban [Eliquis] 5 mg PO BID Cholecalciferol (D-3) [Vitamin D] 1,000 unit PO DAILY Home Medications: Celecoxib [Celebrex] 200 mg PO Q12H 10/19/17 [History] Losartan Potassium [Cozaar] 100 mg PO DAILY 10/19/17 [History] Montelukast [Singulair] 10 mg PO HS PRN 10/19/17 [History] Diltiazem CD (24hr) [Cardizem CD] 120 mg PO DAILY 09/29/18 [History] Apixaban [Eliquis] 5 mg PO BID 10/15/18 [History] OxyCODONE/APAP 5/325 [Percocet 5/325 MG] 1 each PO Q4HR PRN 2 Days #8 tablet 10/20/18 [Rx] Cholecalciferol (D-3) [Vitamin D] 1,000 unit PO DAILY 10/22/18 [History] Docusate [Colace] 100 mg PO BID 30 Days #60 capsule 10/24/18 [Rx] Allergies/Adverse Reactions: Allergy/AdvReac Type Severity Reaction Status Date / Time No Known Allergies Allergy Verified 10/15/18 11:13 Date of admission: 10/22/18 14:10 Primary care physician: Michael Dunham MD Consults: 10/21/18 04:38 Consult to Orthopedic Surgery [CONS] Routine Consulting Provider: Cam Mota Reason for Consult: Right shoulder fracture Call Completed: Yes 10/22/18 16:34 Consult to Occupational Therapy [CONS] Routine Comment: Evaluate, develop and implement POC Reason for Consult: Revision right humeral component with fixation of fracture for reverse total shoulder Does patient have active BEDREST order?: No Is patient medically & hemodynamically stable?: Yes 10/22/18 16:39 Consult to Occupational Therapy [CONS] Routine Comment: post shoulder surgery Reason for Consult: post shoulder surgery/no shoulder and no elbow motion Does patient have active BEDREST order?: No Is patient medically & hemodynamically stable?: Yes Consult to Pneumatic Deicer Inspector [CONS] Routine Reason for SW Consult: shoulder surgery RT Post Op Consult [CONS] Routine - Constitutional Vitals: Temp Pulse Resp BP Pulse Ox 98 F 88 15 131/73 94 10/24/18 14:36 10/24/18 14:36 10/24/18 14:36 10/24/18 14:36 10/24/18 14:36 Exam: Swathi:s: Reviewed General: Alert and oriented x4. No acute distress Cardiovascular: RRR, normal S1 & S2, no rubs, murmurs or gallops. Lungs: CTA b/l, no wheezes or crackles. Abdomen: Soft, non-tender, no rigidity. NABS in all 4 quadrants Extremities: right upper ext slightly symmetrically bigger than left Neurological: No focal neurological deficits Rest of the physical exam is non contributory - Patient Status Disposition: Home, Self-Care Condition: Good Functional capacity at discharge: independent ambulation Overall status at discharge: patient is progressing back to baseline - Discharge Instructions Follow Up With: Michael Dunham MD [Primary Care Provider] - - Diet and Activity Activity: resume usual activities as tolerated Diet: low salt diet
== END 2018-10-24 18:35 | disposition home or self-care (01) | DRG 483 ==
LOC: CDU 17:32 → EMEROOARM 17:32 → SUATTDRO 23:22 → CDU 23:23 → 3NENU 10-22 16:36
PROVIDERS: ADMIT Internal Medicine Nephrology; ATTEND Internal Medicine